=== PATIENT | male | born 1995 | race African-American/Black ===

== ENCOUNTER 2016-11-23 16:31 | Inpatient (IN) | payer SELFPAY ==
[2016-11-23] MEDS ORDERED: ONDANSETRON HCL INJ/PF 4 MG/2 ML SDV IV ONE (17:14)
[2016-11-23] MEDS ORDERED: NORMAL SALINE 1000 ML 1,000 ML IV ONE ×3 (17:14→23:31)
--- NOTE | 2016-11-23 17:17 | ER Document Report ---
ED Flu Like - General Chief Complaint: Flu Symptoms Stated Complaint: FLU LIKE SYMTPOMS Time seen by provider: 17:14 Mode of Arrival: Ambulatory Information source: Patient Notes: 21-year-old female presents to ED for bodyaches nausea or vomiting headache hot and cold sweats and states she's having muscle spasms and unable to eat for one to 2 weeks TRAVEL OUTSIDE OF THE [place] IN LAST 30 DAYS: No - HPI Onset: Other - 1-2 weeks Timing/Duration: Intermittent, Worse Quality of pain: Achy Pain Level: 4 - Body aches and muscle spasms CO exposure: No Associated symptoms: Body/muscle aches, Chills, Nausea, Vomiting Similar symptoms previously: No Recently seen / treated by doctor: No - Related Data Allergies/Adverse Reactions: No Known Allergies Allergy (Verified 11/23/16 16:42) Past Medical History - General Information source: Patient - Social History Smoking Status: Current Every Day Smoker Cigarette use (# per day): Yes - 3 cigarettes a day Chew tobacco use (# tins/day): No Smoking Education Provided: Yes Frequency of alcohol use: Social Drug Abuse: None Lives with: Family Family History: Arthritis, CVA, Hypertension Patient has suicidal ideation: No Patient has homicidal ideation: No - Past Medical History Cardiac Medical History: Reports: Hx Hypertension Pulmonary Medical History: Reports: None EENT Medical History: Reports: None Neurological Medical History: Reports: None Endocrine Medical History: Reports: None Renal/ Medical History: Reports: None Malignancy Medical History: Reports None GI Medical History: Reports: None Musculoskeltal Medical History: Reports None Skin Medical History: Reports None Psychiatric Medical History: Reports: None Traumatic Medical History: Reports: None Infectious Medical History: Reports: None Past Surgical History: Reports: Hx Tonsillectomy Review of Systems - Review of Systems Constitutional: Chills, Fever, Recent illness EENT: No symptoms reported Cardiovascular: No symptoms reported Respiratory: No symptoms reported Gastrointestinal: Diarrhea, Vomiting Genitourinary: No symptoms reported Male Genitourinary: No symptoms reported Musculoskeletal: No symptoms reported Skin: No symptoms reported Hematologic/Lymphatic: No symptoms reported Neurological/Psychological: No symptoms reported Physical Exam - Vital signs Vitals: Temp Pulse Resp BP Pulse Ox 97.8 F 119 H 18 157/94 H 96 11/23/16 16:44 11/23/16 16:44 11/23/16 16:44 11/23/16 16:44 11/23/16 16:44 Interpretation: Normal - General General appearance: Appears well, Alert - HEENT Head: Normocephalic, Atraumatic Eyes: Normal Pupils: PERRL - Respiratory Respiratory status: No respiratory distress Chest status: Nontender Breath sounds: Normal Chest palpation: Normal - Cardiovascular Rhythm: Regular Heart sounds: Normal auscultation Murmur: No - Abdominal Inspection: Normal Distension: No distension Bowel sounds: Normal Tenderness: Nontender Organomegaly: No organomegaly - Back Back: Normal, Nontender - Extremities General upper extremity: Normal inspection, Nontender, Normal color, Normal ROM , Normal temperature General lower extremity: Normal inspection, Nontender, Normal color, Normal ROM , Normal temperature, Normal weight bearing. No: Haylie's sign - Neurological Neuro grossly intact: Yes Cognition: Normal Orientation: AAOx4 [place] Coma Scale Eye Opening: Spontaneous Patricia Coma Scale Verbal: Oriented [place] Coma Scale Motor: Obeys Commands [place] Coma Scale Total: 15 Speech: Normal Motor strength normal: LUE, RUE, LLE, RLE Sensory: Normal - Psychological Associated symptoms: Normal affect, Normal mood - Skin Skin Temperature: Warm Skin Moisture: Dry Skin Color: Normal Course - Re-evaluation Re-evalutation: 11/23/16 18:[address] buchanan. We'll start bolusing saline 4 L, insulin drip, send specimen for venous blood gas, and Accu-Cheks every hour. Patient does not have a primary doctor will admit to hospitalist. Called Dr. Freitas to admit patient and she said that would need to wait until 7:30 and [facility]. 11/23/16 19:[address] Forrester who accepted the patient for admission. We will admit for DKA to IMCU. Patient put in for admission. Patient has had fluids started has had his insulin drip started and is resting quietly at this time. - Vital Signs Vital signs: Temp Pulse Resp BP Pulse Ox 97.8 F 119 H 18 157/94 H 100 11/23/16 16:44 11/23/16 16:44 11/23/16 16:44 11/23/16 16:44 11/23/16 19:38 - Laboratory Result Diagrams: 11/23/16 17:31 11/23/16 17:31 Laboratory results interpreted by me: 11/23/16 11/23/16 17:31 17:31 Sodium 131.5 L Chloride 94 L Carbon Dioxide 9 L* Anion Gap 29 H Glucose 657 H* Alkaline Phosphatase 159 H Urine Glucose (UA) >=500 H Urine Ketones 80 H Urine Blood SMALL H Discharge - Discharge Clinical Impression: DKA (diabetic ketoacidoses) Qualifiers: Diabetes mellitus type: other specified (including CROW) Diabetes mellitus complication detail: without coma Qualified Code(s): E13.10 - Other specified diabetes mellitus with ketoacidosis without coma Disposition: ADMITTED INPATIENT Admitting Provider: [facility] Unit Admitted: [facility]
[2016-11-23 17:48] LABS: ABSOLUTE LYMPHOCYTES (AUTO) 1.7 10^3/uL (0.5-4.7); ABSOLUTE MONOCYTES (AUTO) 0.4 10^3/uL (0.1-1.4); ABSOLUTE NEUT (AUTO) 3.3 10^3/uL (1.7-8.2); BASOPHILS % (AUTO) 0.5 % (0-2); EOSINOPHILS % (AUTO) 0.7 % (0-6); HEMATOCRIT 47.1 % (37.9-51.0); HEMOGLOBIN 16.1 g/dL (13.5-17.0); HGB HCT DIFFERENCE 1.2; MEAN CORPUSCULAR HEMOGLOBIN 30.8 pg (27.0-33.4); MEAN CORPUSCULAR HGB CONC 34.2 g/dL (32.0-36.0); MEAN CORPUSCULAR VOLUME 90 fl (80-97); MONOCYTES % (AUTO) 7.1 % (3-13); RED BLOOD COUNT 5.23 10^6/uL (4.35-5.55); SEGMENTED NEUTROPHILS % (AUTO) 60.7 % (42-78); WHITE BLOOD COUNT 5.4 10^3/uL (4.0-10.5)
[2016-11-23 18:05] LABS: ALANINE AMINOTRANSFERASE 49 U/L (21-72); ALBUMIN 4.5 g/dL (3.5-5.0); ALKALINE PHOSPHATASE 159 U/L (38-126); ASPARTATE AMINO TRANSFERASE 19 U/L (17-59); BILIRUBIN,DIRECT 0.4 mg/dL (0.0-0.4); BILIRUBIN,TOTAL 0.7 mg/dL (0.2-1.3); BLOOD UREA NITROGEN 11 mg/dL (7-20); CALCIUM 9.2 mg/dL (8.4-10.2); CREATININE RESULT 1.17 mg/dL (0.52-1.25); TOTAL PROTEIN 7.9 g/dL (6.3-8.2)
[2016-11-23 18:21] LABS: CHLORIDE 94 mmol/L (98-107); SODIUM 131.5 mmol/L (137-145)
[2016-11-23 18:23] LABS: APPEARANCE,URINE SLIGHTLY-CLOUDY; BILIRUBIN,URINE NEGATIVE (NEGATIVE); GLUCOSE, URINE >=500 mg/dL (NEGATIVE); KETONES,URINE 80 mg/dL (NEGATIVE); LEUKOCYTE ESTERASE,URINE NEGATIVE (NEGATIVE); NITRITE,URINE NEGATIVE (NEGATIVE); PROTEIN,URINE NEGATIVE (NEGATIVE); URINE SPECIFIC GRAVITY 1.031; UROBILINOGEN,URINE NEGATIVE mg/dL (<2.0)
[2016-11-23 18:25] LABS: ANION GAP 29 (5-19)
[2016-11-23 18:28] LABS: CARBON DIOXIDE 9 mmol/L (22-30); GLUCOSE 657 mg/dL (75-110)
[2016-11-23] MEDS ORDERED: NORMAL SALINE 100 ML with INSULIN REGULAR, HUMAN 100 UNIT IV PRN ×2 (18:32)
[2016-11-23 18:33] LABS: URINE BARBITURATES SCREEN NEGATIVE; URINE METHADONE SCREEN NEGATIVE; URINE OPIATES LOW NEGATIVE; URINE PHENCYCLIDINE SCREEN NEGATIVE
[2016-11-23] MEDS: NORMAL SALINE 1000 ML 1,000 ML IV PRN ×2 (18:56→20:11)
[2016-11-23] MEDS ORDERED: INSULIN REG, HUMAN 100 UNIT/ML 3 ML VIAL INJ ONE (19:15)
[2016-11-23] MEDS ORDERED: INSULIN REG, HUMAN 100 UNIT/ML 3 ML VIAL (PYX) ONE (19:19)
[2016-11-23] MEDS ORDERED: INSULIN REG, HUMAN 100 UNIT/ML 3 ML VIAL (PYX) INJ ONE (19:30)
[2016-11-23] MEDS ORDERED: DEXTROSE 40% GEL 15 GM TUBE PO PRN ×2 (19:49)
[2016-11-23] MEDS ORDERED: IPRATROPIUM/ALBUTEROL 0.5-2.5 MG/3 ML AMPUL NEB PRN (19:49)
[2016-11-23] MEDS ORDERED: DEXTROSE 50%-WATER 25 GM/50 ML DISP.SYRIN IV PRN ×2 (19:49)
[2016-11-23] MEDS ORDERED: GLUCAGON,HUMAN RECOMB 1 MG INJ IM PRN (19:49)
[2016-11-23] MEDS ORDERED: ONDANSETRON HCL INJ/PF 4 MG/2 ML SDV IV PRN (19:49)
[2016-11-23] MEDS ORDERED: POTASSI CL 20 MEQ/1/2NS 1L 1,000 ML IV SCH (20:00)
[2016-11-23] MEDS ORDERED: HYDRALAZINE HCL INJ/PF 20 MG/1 ML SDV IV PRN (20:05)
[2016-11-23] MEDS ORDERED: ENALAPRILAT DIHYDRATE INJ/PF 1.25 MG/1 ML SDV IV ONE (20:06)
[2016-11-23 21:10] LABS: VENOUS BLOOD HCO3 11.4 mmol/L (20-32); VENOUS BLOOD PCO2 32.5 mmHg (35-63)
[2016-11-23 21:12] LABS: VENOUS BLOOD PH 7.16 (7.30-7.42)
[2016-11-23 21:21] LABS: BLOOD UREA NITROGEN 9 mg/dL (7-20); CALCIUM 8.2 mg/dL (8.4-10.2); CREATININE RESULT 0.92 mg/dL (0.52-1.25); GLUCOSE 284 mg/dL (75-110)
[2016-11-23 21:35] LABS: CHLORIDE 107 mmol/L (98-107); POTASSIUM 4.1 mmol/L (3.6-5.0); SODIUM 141.4 mmol/L (137-145)
[2016-11-23 21:38] LABS: ANION GAP 25 (5-19)
[2016-11-23 21:40] LABS: CARBON DIOXIDE 9 mmol/L (22-30)
[2016-11-23] MEDS: HEPARIN SOD (PORCINE) 5,000 UNIT/ML 1 ML SYRINGE SUBCUT SCH (22:08)
--- NOTE | 2016-11-23 22:19 | EKG REPORT ---
SEVERITY:- ABNORMAL ECG - SINUS RHYTHM PROLONGED QT INTERVAL : Confirmed by: Anais Montenegro 23-Nov-2016 22:18:38
[2016-11-23] MEDS ORDERED: POTASSI CL 20 MEQ/D5-1/2NS 1L 1,000 ML IV ONE (23:42)
--- NOTE | 2016-11-24 00:37 | PDOC H&P ---
History of Present Illness Admission Date/PCP: 11/23/16 19:49 Patient complains of: Abdominal pain and nausea History of Present Illness: MICHELLE OLEARY JR is a 21 year old male with a past medical history of hypertension, dyslipidemia, subclinical depression, tobacco occasional alcohol and morbid obesity. Who had been in his usual state of health until approximately 2 weeks ago noting polydipsia polyuria and development of nausea with vomiting prompting to seek evaluation emergency room where his found to have diabetic ketoacidosis with increasing increased anion gap and bicarbonate of 9. He denies any recent illness or change in medication. He started on IV insulin IV fluid collection repletion referred the hospitalist for admission. Past Medical History Cardiac Medical History: Reports: Hypertension Pulmonary Medical History: Reports: None EENT Medical History: Reports: None Neurological Medical History: Reports: None Endocrine Medical History: Reports: None Renal/ Medical History: Reports: None Malignancy Medical History: Reports: None GI Medical History: Reports: None Musculoskeltal Medical History: Reports: None Skin Medical History: Reports: None Psychiatric Medical History: Reports: None Traumatic Medical History: Reports: None Infectious Medical History: Reports: None Past Surgical History Past Surgical History: Reports: Tonsillectomy Social History Lives with: Family Smoking Status: Current Every Day Smoker Cigarettes Packs Per Day: 0.5 Frequency of Alcohol Use: Social - Advance Directive Resuscitation Status: Full Code Family History Family History: Arthritis, CVA, DM, Hypertension Parental Family History Reviewed: Yes Children Family History Reviewed: Yes Sibling(s) Family History Reviewed.: Yes Medication/Allergy Home Medications: No Home Medications 11/23/16 Allergies/Adverse Reactions: No Known Allergies Allergy (Verified 11/23/16 16:42) Review of Systems Constitutional: PRESENT: as per HPI, anorexia, fatigue. ABSENT: chills, fever(s ), headache(s), night sweats Eyes: ABSENT: visual disturbances Ears: ABSENT: hearing changes Cardiovascular: ABSENT: chest pain, dyspnea on exertion, edema, orthropnea, palpitations Respiratory: ABSENT: cough, hemoptysis Gastrointestinal: PRESENT: abdominal pain, bloating, nausea, vomiting. ABSENT: dysphagia, heartburn, hematemesis, hematochezia Genitourinary: ABSENT: dysuria, hematuria Musculoskeletal: ABSENT: joint swelling Integumentary: ABSENT: rash, wounds Neurological: ABSENT: abnormal gait, abnormal speech, confusion, dizziness, focal weakness, syncope Psychiatric: ABSENT: anxiety, depression, homidical ideation, suicidal ideation Endocrine: PRESENT: polydipsia, polyphagia, polyuria. ABSENT: cold intolerance , heat intolerance Hematologic/Lymphatic: ABSENT: easy bleeding, easy bruising Physical Exam Vital Signs: Temp Pulse Resp BP Pulse Ox 97.8 F 119 H 12 127/81 H 99 11/23/16 16:44 11/23/16 16:44 11/23/16 21:40 11/23/16 21:40 11/23/16 21:40 General appearance: PRESENT: disheveled, obese, severe distress Head exam: PRESENT: atraumatic, normocephalic Eye exam: PRESENT: conjunctiva pink, EOMI, PERRLA. ABSENT: scleral icterus Ear exam: PRESENT: normal external ear exam Mouth exam: PRESENT: dry mucosa. ABSENT: laceration Neck exam: ABSENT: carotid bruit, JVD, lymphadenopathy, thyromegaly Respiratory exam: PRESENT: clear to auscultation pj. ABSENT: rales, rhonchi, wheezes Cardiovascular exam: PRESENT: bradycardia Pulses: PRESENT: normal dorsalis pedis pul Vascular exam: PRESENT: normal capillary refill GI/Abdominal exam: PRESENT: normal bowel sounds, soft. ABSENT: distended, guarding, mass, organolmegaly, rebound, tenderness Rectal exam: PRESENT: deferred Extremities exam: PRESENT: full ROM. ABSENT: calf tenderness, clubbing, pedal edema Neurological exam: PRESENT: alert, awake, oriented to person, oriented to place , oriented to time, oriented to situation, CN II-XII grossly intact. ABSENT: motor sensory deficit Psychiatric exam: PRESENT: flat affect Skin exam: PRESENT: dry, intact, warm. ABSENT: cyanosis, rash Results Laboratory Results: 11/23/16 21:02 11/23/16 11/23/16 21:02 21:02 VBG pH 7.16 L* VBG pCO2 32.5 L VBG HCO3 11.4 L VBG Base Excess -16.0 Sodium 141.4 Potassium 4.1 Chloride 107 Carbon Dioxide 9 L* Anion Gap 25 H BUN 9 Creatinine 0.92 Est GFR ( Amer) > 60 Est GFR (Non-Af Amer) > 60 Glucose 284 H Calcium 8.2 L Assessment & Plan - Diagnosis (1) DKA (diabetic ketoacidoses) Qualifiers: Diabetes mellitus type: other specified (including CROW) Diabetes mellitus complication detail: without coma Qualified Code(s): E13.10 - Other specified diabetes mellitus with ketoacidosis without coma Is this a current diagnosis for this admission?: YesPlan: IV insulin, IV fluid, electrolyte repletion serial chemistries and education (2) Hypertension Is this a current diagnosis for this admission?: YesPlan: NANDO inhibitor initiated (3) Dyslipidemia Is this a current diagnosis for this admission?: YesPlan: Lipitor (4) Depression Is this a current diagnosis for this admission?: YesPlan: Trial Wellbutrin consider referral to outpatient mental health (5) Morbid obesity Is this a current diagnosis for this admission?: YesPlan: Evaluate TSH and dietitian consult
[2016-11-24 01:43] LABS: ANION GAP 19 (5-19); BLOOD UREA NITROGEN 10 mg/dL (7-20); CALCIUM 8.3 mg/dL (8.4-10.2); CARBON DIOXIDE 11 mmol/L (22-30); CHLORIDE 113 mmol/L (98-107); CREATININE RESULT 0.89 mg/dL (0.52-1.25); GLUCOSE 202 mg/dL (75-110); POTASSIUM 3.8 mmol/L (3.6-5.0); SODIUM 142.7 mmol/L (137-145)
[2016-11-24] MEDS ORDERED: INSULIN, REGULAR 100 UNIT/100 ML NORMAL SALINE IV PRN ×2 (03:20)
[2016-11-24] MEDS ORDERED: POTASSI CL 20 MEQ/D5-1/2NS 1L 1,000 ML IV ONE (04:25)
[2016-11-24] MEDS: POTASSI CL 20 MEQ/D5-1/2NS 1L 1000 ML IV PRN ×3 (04:41→11:24)
[2016-11-24 05:22] LABS: ABSOLUTE EOSINOPHILS # (AUTO) 0.1 10^3/uL (0.0-0.6); ABSOLUTE LYMPHOCYTES (AUTO) 1.6 10^3/uL (0.5-4.7); ABSOLUTE MONOCYTES (AUTO) 0.4 10^3/uL (0.1-1.4); ABSOLUTE NEUT (AUTO) 3.3 10^3/uL (1.7-8.2); BASOPHILS % (AUTO) 0.5 % (0-2); EOSINOPHILS % (AUTO) 1.4 % (0-6); HEMATOCRIT 38.4 % (37.9-51.0); HGB HCT DIFFERENCE 0.6; LYMPHOCYTES % (AUTO) 29.8 % (13-45); MEAN CORPUSCULAR HEMOGLOBIN 29.9 pg (27.0-33.4); MEAN CORPUSCULAR HGB CONC 33.9 g/dL (32.0-36.0); MEAN CORPUSCULAR VOLUME 88 fl (80-97); RED BLOOD COUNT 4.36 10^6/uL (4.35-5.55); RED CELL DISTRIBUTION WIDTH 13.1 % (11.5-14.0); SEGMENTED NEUTROPHILS % (AUTO) 61.3 % (42-78); WHITE BLOOD COUNT 5.4 10^3/uL (4.0-10.5)
[2016-11-24 05:41] LABS: ANION GAP 16 (5-19); BLOOD UREA NITROGEN 8 mg/dL (7-20); CALCIUM 7.8 mg/dL (8.4-10.2); CARBON DIOXIDE 11 mmol/L (22-30); CHLORIDE 113 mmol/L (98-107); CREATININE RESULT 0.76 mg/dL (0.52-1.25); GLUCOSE 167 mg/dL (75-110); POTASSIUM 3.9 mmol/L (3.6-5.0); SODIUM 140.4 mmol/L (137-145)
[2016-11-24] MEDS: HEPARIN SOD (PORCINE) 5,000 UNIT/ML 1 ML SYRINGE SUBCUT SCH ×3 (06:06→21:15)
[2016-11-24] MEDS ORDERED: INSULIN REG, HUMAN 100 UNIT/ML 3 ML VIAL (PYX) ONE (06:15)
[2016-11-24 09:26] LABS: HEMATOCRIT 37.9 % (37.9-51.0); HEMOGLOBIN 12.8 g/dL (13.5-17.0); HGB HCT DIFFERENCE 0.5; MEAN CORPUSCULAR HEMOGLOBIN 29.6 pg (27.0-33.4); MEAN CORPUSCULAR HGB CONC 33.7 g/dL (32.0-36.0); MEAN CORPUSCULAR VOLUME 88 fl (80-97); RED BLOOD COUNT 4.32 10^6/uL (4.35-5.55); RED CELL DISTRIBUTION WIDTH 13.1 % (11.5-14.0); WHITE BLOOD COUNT 4.3 10^3/uL (4.0-10.5)
[2016-11-24 09:57] LABS: ANION GAP 11 (5-19); BLOOD UREA NITROGEN 6 mg/dL (7-20); CALCIUM 8.3 mg/dL (8.4-10.2); CARBON DIOXIDE 16 mmol/L (22-30); CHLORIDE 112 mmol/L (98-107); CREATININE RESULT 0.75 mg/dL (0.52-1.25); GLUCOSE 166 mg/dL (75-110); POTASSIUM 3.8 mmol/L (3.6-5.0); SODIUM 139.1 mmol/L (137-145)
[2016-11-24] MEDS: DOCUSATE SODIUM 100 MG CAPSULE PO SCH ×2 (10:57→16:49)
[2016-11-24] MEDS: BUPROPION HCL 100 MG TABLET PO SCH (10:58)
[2016-11-24] MEDS: ACETAMINOPHEN 325 MG TABLET PO PRN ×2 (10:59→17:41)
[2016-11-24] MEDS ORDERED: GLUCAGON,HUMAN RECOMB 1 MG INJ IM PRN (13:29)
[2016-11-24] MEDS ORDERED: DEXTROSE 40% GEL 15 GM TUBE PO PRN ×2 (13:29)
[2016-11-24] MEDS ORDERED: DEXTROSE 50%-WATER 25 GM/50 ML DISP.SYRIN IV PRN ×2 (13:29)
--- NOTE | 2016-11-24 14:36 | PDOC PROGRESS REPORT ---
Subjective Progress Note for:: 11/24/16 Subjective:: The patient is a 21-year-old obese -Luxembourger male. His past medical history significant for hypertension, dyslipidemia, depression and tobacco abuse. The patient is morbidly obese. He drinks alcohol occasionally. The patient presented to the emergency room with a two-week history of polydipsia and polyuria. He subsequently developed nausea and vomiting. He was unable to keep down any by mouth intake and he presented to the emergency room. Was found to have evidence of diabetic ketoacidosis with increased anion gap and a bicarbonate of 9. He was admitted to the hospital and started on insulin drip protocol. Today when I saw the patient he is resting in his bed. He has a very flat affect and he appears to be quite depressed. He really does not offer much in the way of history and says that he does not have a doctor or any medical insurance at this point. He denies fever chills. Said no chest pain, shortness of breath or heart palpitations. He states his nausea and vomiting have resolved and he is wondering when he can start a diet. He states he has some mild abdominal pain that he attributes to the vomiting. He is having normal bowel movements. He continues to have some urinary frequency but denies dysuria or hematuria. Physical Exam Vital Signs: Temp Pulse Resp BP Pulse Ox 98.5 F 82 15 134/74 H 100 11/24/16 11:36 11/24/16 11:51 11/24/16 11:51 11/24/16 11:36 11/24/16 11:36 Intake & Output 11/23/16 11/24/16 11/25/16 06:59 06:59 06:59 Intake Total 1293 0 Output Total 0 Balance 1293 0 Weight 120.4 kg General appearance: PRESENT: no acute distress, morbidly obese, well-developed, well-nourished Head exam: PRESENT: atraumatic, normocephalic Eye exam: PRESENT: conjunctiva pink, EOMI, PERRLA. ABSENT: scleral icterus Mouth exam: PRESENT: moist, tongue midline Respiratory exam: PRESENT: clear to auscultation pj. ABSENT: rales, rhonchi, wheezes Cardiovascular exam: PRESENT: RRR. ABSENT: diastolic murmur, rubs, systolic murmur GI/Abdominal exam: PRESENT: normal bowel sounds, soft, tenderness - He has mild tenderness to palpation across his upper abdomen. ABSENT: distended, guarding, mass, organolmegaly, rebound Rectal exam: PRESENT: deferred Musculoskeletal exam: PRESENT: ambulatory Neurological exam: PRESENT: alert, altered, awake, oriented to person, oriented to time, oriented to situation Psychiatric exam: PRESENT: depressed, flat affect Skin exam: PRESENT: other - The patient has a small area on the inner left thigh. It is a small wound. It does not appear to be acutely infected. There is some yellow drainage from the wound. Results Laboratory Results: 11/24/16 09:07 11/24/16 09:07 11/23/16 11/23/16 11/24/16 21:02 21:02 01:16 WBC RBC Hgb Hct MCV MCH MCHC RDW Plt Count Seg Neutrophils % Lymphocytes % Monocytes % Eosinophils % Basophils % Absolute Neutrophils Absolute Lymphocytes Absolute Monocytes Absolute Eosinophils Absolute Basophils VBG pH 7.16 L* VBG pCO2 32.5 L VBG HCO3 11.4 L VBG Base Excess -16.0 Sodium 141.4 142.7 Potassium 4.1 3.8 Chloride 107 113 H Carbon Dioxide 9 L* 11 L Anion Gap 25 H 19 BUN 9 10 Creatinine 0.92 0.89 Est GFR ( Amer) > 60 > 60 Est GFR (Non-Af Amer) > 60 > 60 Glucose 284 H 202 H Calcium 8.2 L 8.3 L 11/24/16 11/24/16 11/24/16 04:56 04:56 09:07 WBC 5.4 RBC 4.36 Hgb 13.0 L D Hct 38.4 MCV 88 MCH 29.9 MCHC 33.9 RDW 13.1 Plt Count 216 Seg Neutrophils % 61.3 Lymphocytes % 29.8 Monocytes % 7.0 Eosinophils % 1.4 Basophils % 0.5 Absolute Neutrophils 3.3 Absolute Lymphocytes 1.6 Absolute Monocytes 0.4 Absolute Eosinophils 0.1 Absolute Basophils 0.0 VBG pH VBG pCO2 VBG HCO3 VBG Base Excess Sodium 140.4 139.1 Potassium 3.9 3.8 Chloride 113 H 112 H Carbon Dioxide 11 L 16 L Anion Gap 16 11 BUN 8 6 L Creatinine 0.76 0.75 Est GFR ( Amer) > 60 > 60 Est GFR (Non-Af Amer) > 60 > 60 Glucose 167 H 166 H Calcium 7.8 L 8.3 L 11/24/16 09:07 WBC 4.3 RBC 4.32 L Hgb 12.8 L Hct 37.9 MCV 88 MCH 29.6 MCHC 33.7 RDW 13.1 Plt Count 211 Seg Neutrophils % Lymphocytes % Monocytes % Eosinophils % Basophils % Absolute Neutrophils Absolute Lymphocytes Absolute Monocytes Absolute Eosinophils Absolute Basophils VBG pH VBG pCO2 VBG HCO3 VBG Base Excess Sodium Potassium Chloride Carbon Dioxide Anion Gap BUN Creatinine Est GFR ( Amer) Est GFR (Non-Af Amer) Glucose Calcium Assessment & Plan - Diagnosis (1) DKA (diabetic ketoacidoses) Qualifiers: Diabetes mellitus type: other specified (including CROW) Diabetes mellitus complication detail: without coma Qualified Code(s): E13.10 - Other specified diabetes mellitus with ketoacidosis without coma Is this a current diagnosis for this admission?: YesPlan: The patient's anion gap is normalized and his CO2 level is improving. I did discuss with Dr. Miller but stayed and a decision has been made to place the patient on 50 units of Lantus. He will be covered with sliding scale insulin. He will be started on a diabetic diet. I'm going to consult the rn diabetes educator for further recommendations. He may need to be transitioned over to 70 /30 prior to discharge. I will instruct the nursing staff to instruct the patient how to give himself insulin injections and check his blood sugar. (2) Depression Is this a current diagnosis for this admission?: YesPlan: The patient appears to be acutely depressed. The admitting physician started the patient on Wellbutrin. We will continue this for now. (3) Dyslipidemia Is this a current diagnosis for this admission?: YesPlan: He has been started on atorvastatin (4) Hypertension Is this a current diagnosis for this admission?: YesPlan: I'm going to start the patient on low-dose lisinopril. We can titrate this upwards. This would also help with kidney protection as well. (5) Morbid obesity Is this a current diagnosis for this admission?: YesPlan: He will be seen by the diabetes territory manager. (6) Tobacco abuse Plan: The patient has been started on the neck and arm patch. He also has been started on Wellbutrin for his depression which hopefully will help as well. - Time Time Spent with patient: 25-34 minutes Smoking Cessation Education: 3 to 10 minutes Medications reviewed and adjusted accordingly: Yes Anticipated discharge: Home
[2016-11-24] MEDS ORDERED: INSULIN GLARGINE,HUM.REC.ANLOG 300 UNIT/3 ML INSULN.PEN SUBCUT ONE (15:00)
[2016-11-24] MEDS ORDERED: NICOTINE 21 MG/24 HR PATCH.TD24 TD ONE (15:00)
[2016-11-24 15:55] LABS: ANION GAP 10 (5-19); BLOOD UREA NITROGEN 5 mg/dL (7-20); CALCIUM 8.6 mg/dL (8.4-10.2); CARBON DIOXIDE 18 mmol/L (22-30); CHLORIDE 108 mmol/L (98-107); CREATININE RESULT 0.77 mg/dL (0.52-1.25); GLUCOSE 211 mg/dL (75-110); POTASSIUM 3.6 mmol/L (3.6-5.0); SODIUM 136.4 mmol/L (137-145)
[2016-11-24] MEDS ORDERED: NORMAL SALINE 1000 ML 1,000 ML IV PRN (15:56)
[2016-11-24] MEDS: INSULIN REG, HUMAN 100 UNIT/ML 3 ML VIAL (PYX) SUBCUT PRN ×2 (16:49→22:50)
[2016-11-24 20:05] LABS: ANION GAP 14 (5-19); BLOOD UREA NITROGEN 6 mg/dL (7-20); CALCIUM 8.8 mg/dL (8.4-10.2); CARBON DIOXIDE 16 mmol/L (22-30); CHLORIDE 106 mmol/L (98-107); GLUCOSE 269 mg/dL (75-110); POTASSIUM 4.2 mmol/L (3.6-5.0); SODIUM 135.9 mmol/L (137-145)
[2016-11-24] MEDS: ATORVASTATIN CALCIUM 40 MG TABLET PO SCH (21:15)
[2016-11-24 23:28] LABS: ANION GAP 16 (5-19); BLOOD UREA NITROGEN 5 mg/dL (7-20); CALCIUM 8.8 mg/dL (8.4-10.2); CARBON DIOXIDE 15 mmol/L (22-30); CHLORIDE 106 mmol/L (98-107); GLUCOSE 259 mg/dL (75-110); POTASSIUM 3.7 mmol/L (3.6-5.0); SODIUM 136.9 mmol/L (137-145)
[2016-11-25 03:42] LABS: ANION GAP 12 (5-19); BLOOD UREA NITROGEN 5 mg/dL (7-20); CALCIUM 8.6 mg/dL (8.4-10.2); CARBON DIOXIDE 18 mmol/L (22-30); CHLORIDE 109 mmol/L (98-107); CREATININE RESULT 0.69 mg/dL (0.52-1.25); GLUCOSE 190 mg/dL (75-110); POTASSIUM 3.4 mmol/L (3.6-5.0); SODIUM 138.8 mmol/L (137-145)
[2016-11-25] MEDS: HEPARIN SOD (PORCINE) 5,000 UNIT/ML 1 ML SYRINGE SUBCUT SCH ×3 (05:52→22:55)
[2016-11-25 07:24] LABS: ABSOLUTE EOSINOPHILS # (AUTO) 0.2 10^3/uL (0.0-0.6); ABSOLUTE LYMPHOCYTES (AUTO) 1.4 10^3/uL (0.5-4.7); ABSOLUTE MONOCYTES (AUTO) 0.2 10^3/uL (0.1-1.4); ABSOLUTE NEUT (AUTO) 1.2 10^3/uL (1.7-8.2); BASOPHILS % (AUTO) 0.7 % (0-2); EOSINOPHILS % (AUTO) 6.1 % (0-6); HEMATOCRIT 37.9 % (37.9-51.0); HEMOGLOBIN 12.9 g/dL (13.5-17.0); HGB HCT DIFFERENCE 0.8; LYMPHOCYTES % (AUTO) 46.2 % (13-45); MEAN CORPUSCULAR HEMOGLOBIN 29.9 pg (27.0-33.4); MEAN CORPUSCULAR HGB CONC 34.2 g/dL (32.0-36.0); MEAN CORPUSCULAR VOLUME 87 fl (80-97); MONOCYTES % (AUTO) 7.6 % (3-13); RED BLOOD COUNT 4.33 10^6/uL (4.35-5.55); RED CELL DISTRIBUTION WIDTH 13.2 % (11.5-14.0); SEGMENTED NEUTROPHILS % (AUTO) 39.4 % (42-78)
[2016-11-25] MEDS ORDERED: ACETAMINOPHEN 325 MG TABLET PO PRN (07:28)
[2016-11-25] MEDS ORDERED: POTASSIUM CHLORIDE 10 MEQ TABLET.SA PO ONE (07:30)
[2016-11-25 07:44] LABS: ANION GAP 12 (5-19); BLOOD UREA NITROGEN 4 mg/dL (7-20); CALCIUM 8.6 mg/dL (8.4-10.2); CARBON DIOXIDE 19 mmol/L (22-30); CHLORIDE 108 mmol/L (98-107); CREATININE RESULT 0.68 mg/dL (0.52-1.25); GLUCOSE 161 mg/dL (75-110); MAGNESIUM 1.9 mg/dL (1.6-2.3); POTASSIUM 3.3 mmol/L (3.6-5.0); SODIUM 138.5 mmol/L (137-145)
[2016-11-25] MEDS: NICOTINE 21 MG/24 HR PATCH.TD24 TD SCH (09:03)
[2016-11-25] MEDS: LISINOPRIL 10 MG TABLET PO SCH (09:04)
[2016-11-25] MEDS: DOCUSATE SODIUM 100 MG CAPSULE PO SCH ×2 (09:04→17:41)
[2016-11-25] MEDS: BUPROPION HCL 100 MG TABLET PO SCH (09:04)
[2016-11-25] MEDS: INSULIN GLARGINE,HUM.REC.ANLOG 300 UNIT/3 ML INSULN.PEN SUBCUT SCH (09:06)
--- NOTE | 2016-11-25 09:37 | PDOC PROGRESS REPORT ---
Subjective Progress Note for:: 11/25/16 Subjective:: The patient is resting in his bed with his at the bedside. He is a little more interactive today but still appears to be quite depressed. He states that he is feeling better than he did yesterday. He is quite overwhelmed with this entire diagnosis and is unsure whether he can give himself insulin injections. The patient's also had many questions regarding a diabetic diet. I spent quite some time in the room discussing diabetes education with the patient and his . They are looking forward to seeing the diabetes nurse educator today. Overall the patient denies fever or chills. He's had no chest pain, shortness of breath or heart palpitations. No nausea, vomiting or diarrhea. He is tolerating a diabetic diet. No dysuria, frequency or hematuria. Physical Exam Vital Signs: Temp Pulse Resp BP Pulse Ox 97.6 F 86 19 124/61 100 11/25/16 07:31 11/25/16 07:31 11/25/16 07:31 11/25/16 07:31 11/25/16 07:31 Intake & Output 11/24/16 11/25/16 11/26/16 06:59 06:59 06:59 Intake Total 1293 3852 Output Total 0 221 Balance 1293 3631 Weight 120.4 kg 120.4 kg General appearance: PRESENT: no acute distress, obese, well-developed, well- nourished Head exam: PRESENT: atraumatic, normocephalic Eye exam: PRESENT: scleral icterus Mouth exam: PRESENT: dry mucosa, laceration, moist, neck supple, tongue midline , other Respiratory exam: PRESENT: clear to auscultation pj. ABSENT: rales, rhonchi, wheezes Cardiovascular exam: PRESENT: RRR. ABSENT: diastolic murmur, rubs, systolic murmur GI/Abdominal exam: PRESENT: normal bowel sounds, soft, tenderness - He is mildly tender across his upper abdomen. ABSENT: distended, guarding, mass, organolmegaly, rebound Neurological exam: PRESENT: alert, awake, oriented to person, oriented to place , oriented to time, oriented to situation, CN II-XII grossly intact. ABSENT: motor sensory deficit Psychiatric exam: PRESENT: depressed, flat affect Skin exam: PRESENT: dry, intact, warm. ABSENT: cyanosis, rash Results Laboratory Results: 11/25/16 07:10 11/25/16 07:10 11/24/16 11/24/16 11/24/16 09:07 09:07 15:26 WBC 4.3 RBC 4.32 L Hgb 12.8 L Hct 37.9 MCV 88 MCH 29.6 MCHC 33.7 RDW 13.1 Plt Count 211 Seg Neutrophils % Lymphocytes % Monocytes % Eosinophils % Basophils % Absolute Neutrophils Absolute Lymphocytes Absolute Monocytes Absolute Eosinophils Absolute Basophils Sodium 139.1 136.4 L Potassium 3.8 3.6 Chloride 112 H 108 H Carbon Dioxide 16 L 18 L Anion Gap 11 10 BUN 6 L 5 L Creatinine 0.75 0.77 Est GFR ( Amer) > 60 > 60 Est GFR (Non-Af Amer) > 60 > 60 Glucose 166 H 211 H Calcium 8.3 L 8.6 Magnesium 11/24/16 11/24/16 11/25/16 19:32 23:00 03:03 WBC RBC Hgb Hct MCV MCH MCHC RDW Plt Count Seg Neutrophils % Lymphocytes % Monocytes % Eosinophils % Basophils % Absolute Neutrophils Absolute Lymphocytes Absolute Monocytes Absolute Eosinophils Absolute Basophils Sodium 135.9 L 136.9 L 138.8 Potassium 4.2 3.7 3.4 L Chloride 106 106 109 H Carbon Dioxide 16 L 15 L 18 L Anion Gap 14 16 12 BUN 6 L 5 L 5 L Creatinine 0.80 0.80 0.69 Est GFR ( Amer) > 60 > 60 > 60 Est GFR (Non-Af Amer) > 60 > 60 > 60 Glucose 269 H 259 H 190 H Calcium 8.8 8.8 8.6 Magnesium 11/25/16 11/25/16 07:10 07:10 WBC 3.0 L RBC 4.33 L Hgb 12.9 L Hct 37.9 MCV 87 MCH 29.9 MCHC 34.2 RDW 13.2 Plt Count 193 Seg Neutrophils % 39.4 L Lymphocytes % 46.2 H Monocytes % 7.6 Eosinophils % 6.1 H Basophils % 0.7 Absolute Neutrophils 1.2 L Absolute Lymphocytes 1.4 Absolute Monocytes 0.2 Absolute Eosinophils 0.2 Absolute Basophils 0.0 Sodium 138.5 Potassium 3.3 L Chloride 108 H Carbon Dioxide 19 L Anion Gap 12 BUN 4 L Creatinine 0.68 Est GFR ( Amer) > 60 Est GFR (Non-Af Amer) > 60 Glucose 161 H Calcium 8.6 Magnesium 1.9 Assessment & Plan - Diagnosis (1) Diabetes 1.5, managed as type 1 Plan: The patient is doing quite well on 50 units of Lantus. He will continue sliding scale insulin as well. I have consulted the patient educator to see the patient today. Unfortunately the patient does not have insurance so I am unsure whether he will be able to get Lantus. I will have the nursing staff continue to work with the patient regarding insulin injections and checking his blood sugar. (2) DKA (diabetic ketoacidoses) Qualifiers: Diabetes mellitus type: other specified (including CROW) Diabetes mellitus complication detail: without coma Qualified Code(s): E13.10 - Other specified diabetes mellitus with ketoacidosis without coma Is this a current diagnosis for this admission?: YesPlan: The patient's diabetic ketoacidosis is slowly resolving. His anion gap has closed and his CO2 level is improving. (3) Depression Is this a current diagnosis for this admission?: YesPlan: He has been started on Wellbutrin. He seems to be tolerating this quite well (4) Dyslipidemia Is this a current diagnosis for this admission?: YesPlan: He has been started on Lipitor. (5) Hypertension Is this a current diagnosis for this admission?: YesPlan: He was started on 10 mg of lisinopril yesterday. Hopefully this will provide him some renal protection as well. His systolic blood pressure today is in the 120s (6) Morbid obesity Is this a current diagnosis for this admission?: YesPlan: Certainly it would be in his best interest if the patient lost weight. The patient has brought in fast food. I did spend quite a bit of time discussing a healthy diabetic diet. Hopefully the diabetes nurse educator can provide some further education. (7) Tobacco abuse Plan: He has a nicotine patch in place. He has been started on Wellbutrin. He is advised to quit smoking. - Time Time Spent with patient: 25-34 minutes - This included approximately 25 minutes providing diabetes education.
[2016-11-25 11:57] LABS: ANION GAP 14 (5-19); BLOOD UREA NITROGEN 4 mg/dL (7-20); CALCIUM 8.9 mg/dL (8.4-10.2); CARBON DIOXIDE 19 mmol/L (22-30); CHLORIDE 105 mmol/L (98-107); CREATININE RESULT 0.73 mg/dL (0.52-1.25); GLUCOSE 224 mg/dL (75-110); POTASSIUM 3.8 mmol/L (3.6-5.0); SODIUM 138.3 mmol/L (137-145)
[2016-11-25] MEDS: INSULIN REG, HUMAN 100 UNIT/ML 3 ML VIAL (PYX) SUBCUT PRN ×3 (12:39→22:55)
[2016-11-25 16:35] LABS: ANION GAP 15 (5-19); BLOOD UREA NITROGEN 5 mg/dL (7-20); CARBON DIOXIDE 19 mmol/L (22-30); CHLORIDE 103 mmol/L (98-107); CREATININE RESULT 0.71 mg/dL (0.52-1.25); GLUCOSE 241 mg/dL (75-110); POTASSIUM 3.8 mmol/L (3.6-5.0); SODIUM 137.3 mmol/L (137-145)
[2016-11-25 20:11] LABS: ANION GAP 16 (5-19); BLOOD UREA NITROGEN 6 mg/dL (7-20); CALCIUM 9.2 mg/dL (8.4-10.2); CARBON DIOXIDE 20 mmol/L (22-30); CHLORIDE 102 mmol/L (98-107); CREATININE RESULT 0.78 mg/dL (0.52-1.25); GLUCOSE 299 mg/dL (75-110); POTASSIUM 3.8 mmol/L (3.6-5.0); SODIUM 137.9 mmol/L (137-145)
[2016-11-25] MEDS: ATORVASTATIN CALCIUM 40 MG TABLET PO SCH (22:55)
[2016-11-25 23:44] LABS: ANION GAP 13 (5-19); BLOOD UREA NITROGEN 6 mg/dL (7-20); CARBON DIOXIDE 23 mmol/L (22-30); CHLORIDE 102 mmol/L (98-107); CREATININE RESULT 0.77 mg/dL (0.52-1.25); GLUCOSE 205 mg/dL (75-110); POTASSIUM 3.4 mmol/L (3.6-5.0); SODIUM 138.3 mmol/L (137-145)
[2016-11-26 03:56] LABS: ANION GAP 15 (5-19); BLOOD UREA NITROGEN 7 mg/dL (7-20); CALCIUM 9.1 mg/dL (8.4-10.2); CARBON DIOXIDE 22 mmol/L (22-30); CHLORIDE 104 mmol/L (98-107); CREATININE RESULT 0.72 mg/dL (0.52-1.25); GLUCOSE 193 mg/dL (75-110); POTASSIUM 3.3 mmol/L (3.6-5.0); SODIUM 140.8 mmol/L (137-145)
[2016-11-26] MEDS: HEPARIN SOD (PORCINE) 5,000 UNIT/ML 1 ML SYRINGE SUBCUT SCH ×2 (06:21→14:03)
[2016-11-26 08:11] LABS: ABSOLUTE EOSINOPHILS # (AUTO) 0.1 10^3/uL (0.0-0.6); ABSOLUTE LYMPHOCYTES (AUTO) 1.6 10^3/uL (0.5-4.7); ABSOLUTE MONOCYTES (AUTO) 0.3 10^3/uL (0.1-1.4); ABSOLUTE NEUT (AUTO) 1.1 10^3/uL (1.7-8.2); BASOPHILS % (AUTO) 0.7 % (0-2); EOSINOPHILS % (AUTO) 4.8 % (0-6); HEMATOCRIT 38.8 % (37.9-51.0); HEMOGLOBIN 13.1 g/dL (13.5-17.0); HGB HCT DIFFERENCE 0.5; LYMPHOCYTES % (AUTO) 50.8 % (13-45); MEAN CORPUSCULAR HEMOGLOBIN 29.6 pg (27.0-33.4); MEAN CORPUSCULAR HGB CONC 33.7 g/dL (32.0-36.0); MEAN CORPUSCULAR VOLUME 88 fl (80-97); MONOCYTES % (AUTO) 9.4 % (3-13); RED BLOOD COUNT 4.41 10^6/uL (4.35-5.55); SEGMENTED NEUTROPHILS % (AUTO) 34.3 % (42-78); WHITE BLOOD COUNT 3.2 10^3/uL (4.0-10.5)
[2016-11-26 08:30] LABS: ANION GAP 16 (5-19); BLOOD UREA NITROGEN 6 mg/dL (7-20); CARBON DIOXIDE 23 mmol/L (22-30); CHLORIDE 103 mmol/L (98-107); CREATININE RESULT 0.69 mg/dL (0.52-1.25); GLUCOSE 173 mg/dL (75-110); MAGNESIUM 1.9 mg/dL (1.6-2.3); POTASSIUM 3.2 mmol/L (3.6-5.0); SODIUM 141.6 mmol/L (137-145)
[2016-11-26] MEDS: BUPROPION HCL 100 MG TABLET PO SCH (09:24)
[2016-11-26] MEDS: LISINOPRIL 10 MG TABLET PO SCH (09:25)
[2016-11-26] MEDS: DOCUSATE SODIUM 100 MG CAPSULE PO SCH (09:25)
[2016-11-26] MEDS: INSULIN GLARGINE,HUM.REC.ANLOG 300 UNIT/3 ML INSULN.PEN SUBCUT SCH (09:26)
[2016-11-26] MEDS: INSULIN REG, HUMAN 100 UNIT/ML 3 ML VIAL (PYX) SUBCUT PRN ×2 (09:26→12:45)
[2016-11-26] MEDS: NICOTINE 21 MG/24 HR PATCH.TD24 TD SCH (09:27)
[2016-11-26 12:34] VITALS: BP 129/71
[2016-11-26 15:43] LABS: ANION GAP 15 (5-19); BLOOD UREA NITROGEN 8 mg/dL (7-20); CALCIUM 9.8 mg/dL (8.4-10.2); CARBON DIOXIDE 22 mmol/L (22-30); CHLORIDE 100 mmol/L (98-107); CREATININE RESULT 0.73 mg/dL (0.52-1.25); GLUCOSE 334 mg/dL (75-110); POTASSIUM 3.7 mmol/L (3.6-5.0)
--- NOTE | 2016-11-26 16:19 | PDOC DISCHARGE SUMMARY ---
General - Admit/Disc Date/PCP Admission Date/Primary Care Provider: 11/23/16 19:49 Primary care provider: [facility] Discharge Date: 11/26/16 - Discharge Diagnosis (1) Diabetes 1.5, managed as type 1 Summary: The patient has been started on Lantus 50 units daily. I have spoken at length to our discharge planners as well as a pharmacist [facility]. He has an appointment Tuesday [facility]. We will relabel his Lantus pen and they are going to obtain patient assistance for Lantus going forward. (2) DKA (diabetic ketoacidoses) Is this a current diagnosis for this admission?: YesSummary: Resolved (3) Depression Is this a current diagnosis for this admission?: YesSummary: He has been started on Wellbutrin (4) Dyslipidemia Is this a current diagnosis for this admission?: YesSummary: He has been started on Lipitor (5) Hypertension Is this a current diagnosis for this admission?: YesSummary: He has been started on Lisinopril (6) Morbid obesity Is this a current diagnosis for this admission?: YesSummary: He is encouraged to lose weight (7) Tobacco abuse Summary: He is encouraged to quit smoking - Additional Information Resuscitation Status: Full Code Discharge Diet: Diabetic Discharge Activity: Activity As Tolerated, Balance Activity w/Rest, Slowly Increase Activity Home Medications: Ascorbic Acid [Vitamin C 500 mg Tablet] 500 mg PO DAILY 11/24/16 Ibuprofen 800 mg PO PRN PRN 11/24/16 Loratadine [Claritin 10 mg Tablet] 10 mg PO DAILY 11/24/16 Polyethylene Glycol 3350 [Miralax Powder 17 gm/Packet] 17 gm PO DAILY 11/24/16 Atorvastatin Calcium [Lipitor 40 mg Tablet] 40 mg PO QHS #30 tablet 11/26/16 Bupropion HCl [Wellbutrin 100 mg Tablet] 100 mg PO DAILY #30 tablet 11/26/16 Docusate Sodium [Colace 100 mg Capsule] 100 mg PO BID #60 capsule 11/26/16 Lisinopril [Prinivil 10 mg Tablet] 10 mg PO DAILY #30 tablet 11/26/16 History of Present Illness History of Present Illness: MICHELLE Templeton ANIRUDH KIRK is a 21 year old male who presented to the ER with intractable nausea and vomiting. Hospital Course Hospital Course: The patient is a 21-year-old obese -[place] male. His past medical history significant for hypertension, dyslipidemia, depression and tobacco abuse. The patient presented to the emergency room with a two-week history of polydipsia and polyuria. He subsequently developed intractable nausea and vomiting. In the emergency room he was found to have evidence of diabetic ketoacidosis with increased anion gap and a bicarbonate of 9. He was admitted to the hospital and started on an insulin drip. The patient's anion gap closed and the patient was transitioned to 50 units of Lantus. He has received diabetic education during this hospitalization is giving himself insulin injections and has had to check his blood sugar at the time of discharge. Discussions were had with the discharge planners as well as a pharmacist at [facility]. She is given the patient information regarding an assistance program where the patient can get low-cost Lantus. We have made him an appointment follow-up [facility] on Tuesday. He is to take his paperwork with him to this appointment. We are going to relabel his Lantus pen and he will be discharged home today in stable condition. All of this is been discussed with the patient and his and all of their questions were answered at the time of discharge. Physical Exam Vital Signs: Temp Pulse Resp BP Pulse Ox 97.5 F 78 16 139/84 H 100 11/26/16 11:21 11/26/16 14:08 11/26/16 14:08 11/26/16 11:21 11/26/16 11:21 Intake & Output 11/25/16 11/26/16 11/27/16 06:59 06:59 06:59 Intake Total 3852 3724 696 Output Total 221 Balance 3631 3724 696 Weight 120.4 kg 119.4 kg General appearance: PRESENT: no acute distress, well-developed, well-nourished Eye exam: PRESENT: conjunctiva pink, EOMI, PERRLA. ABSENT: scleral icterus Mouth exam: PRESENT: moist, tongue midline Respiratory exam: PRESENT: clear to auscultation pj. ABSENT: rales, rhonchi, wheezes Cardiovascular exam: PRESENT: RRR. ABSENT: diastolic murmur, rubs, systolic murmur GI/Abdominal exam: PRESENT: normal bowel sounds, soft. ABSENT: distended, guarding, mass, organolmegaly, rebound, tenderness Extremities exam: PRESENT: full ROM. ABSENT: calf tenderness, clubbing, pedal edema Neurological exam: PRESENT: alert, awake, oriented to person, oriented to place , oriented to time, oriented to situation, CN II-XII grossly intact. ABSENT: motor sensory deficit Psychiatric exam: PRESENT: depressed Skin exam: PRESENT: dry, intact, warm. ABSENT: cyanosis, rash Results Laboratory Results: 11/26/16 07:25 11/26/16 15:00 11/25/16 11/25/16 11/25/16 16:00 19:32 23:22 WBC RBC Hgb Hct MCV MCH MCHC RDW Plt Count Seg Neutrophils % Lymphocytes % Monocytes % Eosinophils % Basophils % Absolute Neutrophils Absolute Lymphocytes Absolute Monocytes Absolute Eosinophils Absolute Basophils Sodium 137.3 137.9 138.3 Potassium 3.8 3.8 3.4 L Chloride 103 102 102 Carbon Dioxide 19 L 20 L 23 Anion Gap 15 16 13 BUN 5 L 6 L 6 L Creatinine 0.71 0.78 0.77 Est GFR ( Amer) > 60 > 60 > 60 Est GFR (Non-Af Amer) > 60 > 60 > 60 Glucose 241 H 299 H 205 H Calcium 9.0 9.2 9.0 Magnesium 11/26/16 11/26/16 11/26/16 03:19 07:25 07:25 WBC 3.2 L RBC 4.41 Hgb 13.1 L Hct 38.8 MCV 88 MCH 29.6 MCHC 33.7 RDW 13.0 Plt Count 180 Seg Neutrophils % 34.3 L Lymphocytes % 50.8 H Monocytes % 9.4 Eosinophils % 4.8 Basophils % 0.7 Absolute Neutrophils 1.1 L Absolute Lymphocytes 1.6 Absolute Monocytes 0.3 Absolute Eosinophils 0.1 Absolute Basophils 0.0 Sodium 140.8 141.6 Potassium 3.3 L 3.2 L Chloride 104 103 Carbon Dioxide 22 23 Anion Gap 15 16 BUN 7 6 L Creatinine 0.72 0.69 Est GFR ( Amer) > 60 > 60 Est GFR (Non-Af Amer) > 60 > 60 Glucose 193 H 173 H Calcium 9.1 9.0 Magnesium 1.9 11/26/16 15:00 WBC RBC Hgb Hct MCV MCH MCHC RDW Plt Count Seg Neutrophils % Lymphocytes % Monocytes % Eosinophils % Basophils % Absolute Neutrophils Absolute Lymphocytes Absolute Monocytes Absolute Eosinophils Absolute Basophils Sodium 137.0 Potassium 3.7 Chloride 100 Carbon Dioxide 22 Anion Gap 15 BUN 8 Creatinine 0.73 Est GFR ( Amer) > 60 Est GFR (Non-Af Amer) > 60 Glucose 334 H Calcium 9.8 Magnesium Qualifiers PATEINT BEING DISCHARGED WITH ANY OF THE FOLLOWING DIAGNOSIS?: No Plan Discharge Plan: [facility] Time Spent: Greater than 30 Minutes
== END 2016-11-26 16:03 | disposition home or self-care (01) | DRG 639 ==
LOC: ER 16:31 → EH 19:49 → UNDOADMIN 20:08 → EH 20:08 → 3N 11-24 01:45
PROVIDERS: ADMIT Internal Medicine; ATTEND Internal Medicine
PROC: 3E0F73Z Introduction of Anti-inflammatory into Respiratory Tract, Via Natural or Artificial Opening (ICD-10-PCS; principal; 2016-11-23)
DX: E10.10 Type 1 diabetes mellitus with ketoacidosis without coma (principal); E66.01 Morbid (severe) obesity due to excess calories; Z68.36 Body mass index [BMI] 36.0-36.9, adult; F32.9 Major depressive disorder, single episode, unspecified; E78.5 Hyperlipidemia, unspecified; I10 Essential (primary) hypertension; F17.210 Nicotine dependence, cigarettes, uncomplicated; Z79.899 Other long term (current) drug therapy; Z82.3 Family history of stroke; Z83.3 Family history of diabetes mellitus; Z84.89 Family history of other specified conditions; Z82.61 Family history of arthritis
CPT/HCPCS: 36415; 80048; 80053; 80307; 81001; 82803; 82962; 83036; 83605; 83735; 85025; 85027; 87070; 87077; 87205; 93005; 93010; 96374; 99284; J1644; J1815; J2405; J3480; J3490; J7030

== ENCOUNTER 2017-07-12 09:03 | Emergency (ER) | payer MEDICAID, OTHER ==
[2017-07-12] MEDS ORDERED: OXYCODONE-ACETAMINOPHEN 5-325 MG TABLET PO ONE (09:36)
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
[2017-07-12 09:56] LABS: APPEARANCE,URINE CLEAR; BILIRUBIN,URINE NEGATIVE (NEGATIVE); GLUCOSE, URINE 150 mg/dL (NEGATIVE); KETONES,URINE NEGATIVE (NEGATIVE); LEUKOCYTE ESTERASE,URINE NEGATIVE (NEGATIVE); NITRITE,URINE NEGATIVE (NEGATIVE); PROTEIN,URINE 100 mg/dL (NEGATIVE); URINE SPECIFIC GRAVITY 1.019
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
[2017-07-12 14:45] VITALS: BP 159/83
== END 2017-07-12 14:45 | disposition home or self-care (01) ==
LOC: ER 09:03
DX: M54.2 Cervicalgia (principal); V49.40XA Driver injured in collision with unspecified motor vehicles in traffic accident, initial encounter; M54.5 Low back pain; I10 Essential (primary) hypertension; E11.9 Type 2 diabetes mellitus without complications; F17.200 Nicotine dependence, unspecified, uncomplicated
CPT/HCPCS: 72070; 72110; 72125; 81001; 99285

== ENCOUNTER 2018-01-09 09:25 | Inpatient (IN) | payer SELFPAY ==
--- NOTE | 2018-01-09 11:12 | ER Document Report ---
ED Medical Screen (RME) - General Chief Complaint: Abdominal Pain Stated Complaint: VOMITING, ABDOMINAL PAIN, DIARRHEA Time Seen by Provider: 01/09/18 10:56 Mode of Arrival: Wheelchair Information source: Patient, Relative Notes: Pt is a 22 year old male who presents to the ER today for n/vomiting/diarrhea x 1 month with diarrhea just starting yesterday. Pt is a diabetic who's been off his medications for a year, was on lantus. He admits to abdominal pain throughout his abdomen in the middle and all across. states he almost passed out in the waiting room, that his eyes rolled back in his head. Pt is alert now. TRAVEL OUTSIDE OF THE [place] IN LAST 30 DAYS: No - Related Data Allergies/Adverse Reactions: No Known Allergies Allergy (Verified 01/09/18 09:31) Past Medical History - General Information source: Patient, Relative - Past Medical History Cardiac Medical History: Reports: Hx Hypertension Endocrine Medical History: Reports: Hx Diabetes Mellitus Type 2 Renal/ Medical History: Denies: Hx Peritoneal Dialysis Psychiatric Medical History: Reports: Hx Depression Past Surgical History: Reports: Hx Tonsillectomy Review of Systems - Review of Systems Gastrointestinal: See HPI Physical Exam - Vital signs Vitals: Temp Pulse Resp BP Pulse Ox 98.3 F 107 H 16 145/101 H 97 01/09/18 09:37 01/09/18 09:37 01/09/18 09:37 01/09/18 09:37 01/09/18 09:37 - Notes Notes: General: sluggish but arousable and answers questions appropriately CV: tachycardic with regular rhythm abd: diffuse tenderness, no rebound or guarding Course - Vital Signs Vital signs: Temp Pulse Resp BP Pulse Ox 98.3 F 107 H 16 145/101 H 97 01/09/18 09:37 01/09/18 09:37 01/09/18 09:37 01/09/18 09:37 01/09/18 09:37
[2018-01-09] MEDS ORDERED: NORMAL SALINE 1000 ML 1,000 ML IV ONE ×3 (11:29→14:38)
[2018-01-09 11:59] LABS: ABSOLUTE EOSINOPHILS # (AUTO) 0.1 10^3/uL (0.0-0.6); ABSOLUTE LYMPHOCYTES (AUTO) 2.1 10^3/uL (0.5-4.7); ABSOLUTE MONOCYTES (AUTO) 0.5 10^3/uL (0.1-1.4); ABSOLUTE NEUT (AUTO) 4.7 10^3/uL (1.7-8.2); BASOPHILS % (AUTO) 0.7 % (0-2); EOSINOPHILS % (AUTO) 1.7 % (0-6); HEMATOCRIT 47.8 % (37.9-51.0); HEMOGLOBIN 16.7 g/dL (13.5-17.0); LYMPHOCYTES % (AUTO) 27.7 % (13-45); MEAN CORPUSCULAR HEMOGLOBIN 30.6 pg (27.0-33.4); MEAN CORPUSCULAR HGB CONC 34.9 g/dL (32.0-36.0); MEAN CORPUSCULAR VOLUME 88 fl (80-97); MONOCYTES % (AUTO) 6.5 % (3-13); PLATELET COUNT 262 10^3/uL (150-450); RED BLOOD COUNT 5.45 10^6/uL (4.35-5.55); SEGMENTED NEUTROPHILS % (AUTO) 63.4 % (42-78); TOTAL CELLS COUNTED % (AUTO) 100 %; WHITE BLOOD COUNT 7.4 10^3/uL (4.0-10.5)
[2018-01-09 12:22] LABS: ALANINE AMINOTRANSFERASE 33 U/L (21-72); ALBUMIN 4.9 g/dL (3.5-5.0); ALKALINE PHOSPHATASE 143 U/L (38-126); ASPARTATE AMINO TRANSFERASE 18 U/L (17-59); BILIRUBIN,DIRECT 0.6 mg/dL (0.0-0.4); BILIRUBIN,TOTAL 0.9 mg/dL (0.2-1.3); BLOOD UREA NITROGEN 18 mg/dL (7-20); CALCIUM 10.1 mg/dL (8.4-10.2); CREATINE KINASE 230 U/L (55-170); LIPASE 106.7 U/L (23-300); POTASSIUM 4.3 mmol/L (3.6-5.0)
[2018-01-09 12:28] LABS: CARBON DIOXIDE 13 mmol/L (22-30); CHLORIDE 95 mmol/L (98-107); SODIUM 136.2 mmol/L (137-145)
[2018-01-09 12:38] LABS: ANION GAP 28 (5-19)
[2018-01-09 12:39] LABS: GLUCOSE 401 mg/dL (75-110)
[2018-01-09 12:46] LABS: VENOUS BLOOD BASE EXCESS -7.4 mmol/L; VENOUS BLOOD PCO2 32.2 mmHg (35-63); VENOUS BLOOD PH 7.34 (7.30-7.42)
[2018-01-09 12:46] LABS: APPEARANCE,URINE CLEAR; BILIRUBIN,URINE NEGATIVE (NEGATIVE); COLOR,URINE STRAW; GLUCOSE, URINE >=500 mg/dL (NEGATIVE); KETONES,URINE 80 mg/dL (NEGATIVE); LEUKOCYTE ESTERASE,URINE NEGATIVE (NEGATIVE); NITRITE,URINE NEGATIVE (NEGATIVE); PROTEIN,URINE NEGATIVE (NEGATIVE); URINE SPECIFIC GRAVITY 1.032; UROBILINOGEN,URINE NEGATIVE mg/dL (<2.0)
[2018-01-09] MEDS ORDERED: INSULIN REG, HUMAN 100 UNIT/ML 3 ML VIAL (PYX) IV ONE (12:53)
--- NOTE | 2018-01-09 12:59 | ER Document Report ---
ED General - General Mode of Arrival: Wheelchair Information source: Patient TRAVEL OUTSIDE OF THE [place] IN LAST 30 DAYS: No <DICK GIBSON - Last Filed: 01/09/18 13:17> <AARON VAIL - Last Filed: 01/09/18 14:48> - General Chief Complaint: Abdominal Pain Stated Complaint: VOMITING, ABDOMINAL PAIN, DIARRHEA Time Seen by Provider: 01/09/18 10:56 Notes: Patient is a 22 year old male with diabetes presents to the emergency department complaining of multiple symptoms including intermittent nausea, vomiting and frequent urination onset 1 month ago and diarrhea onset yesterday. Patient states the last time he vomited was today and prior to today was approximately 1 week ago. Patient states he was diagnosed with diabetes approximately 1 year 3 months ago. He states he stopped taking his medication of Lantus because he did not like the way it made him feel. (DICK GIBSON) - Related Data Allergies/Adverse Reactions: No Known Allergies Allergy (Verified 01/09/18 09:31) Past Medical History - General Information source: Patient, Relative - Social History Smoking Status: Current Every Day Smoker Cigarette use (# per day): Yes - 1/2 a pack Chew tobacco use (# tins/day): No Frequency of alcohol use: Social Drug Abuse: None Family History: Arthritis, CVA, DM, Hypertension Patient has suicidal ideation: No Patient has homicidal ideation: No - Past Medical History Cardiac Medical History: Reports: Hx Hypertension Endocrine Medical History: Reports: Hx Diabetes Mellitus Type 2 Psychiatric Medical History: Reports: Hx Depression Past Surgical History: Reports: Hx Tonsillectomy - Immunizations Hx Pneumococcal Vaccination: 08/01/11 <DICK GIBSON - Last Filed: 01/09/18 13:17> Review of Systems - Review of Systems Constitutional: No symptoms reported EENT: No symptoms reported Cardiovascular: No symptoms reported Respiratory: No symptoms reported Gastrointestinal: See HPI, Diarrhea, Nausea, Vomiting Genitourinary: See HPI, Frequency Male Genitourinary: No symptoms reported Musculoskeletal: No symptoms reported Skin: No symptoms reported Hematologic/Lymphatic: No symptoms reported Neurological/Psychological: No symptoms reported -: Yes All other systems reviewed and negative <DICK GIBSON - Last Filed: 01/09/18 13:17> Physical Exam - General General appearance: Alert, Other - Appears sluggish, strong ketone odor. In distress: None - HEENT Head: Normocephalic, Atraumatic Eyes: Normal Conjunctiva: Normal Extraocular movements intact: Yes Pupils: PERRL Corrective lenses worn: Yes Mucous membranes: Dry Neck: Normal - Respiratory Respiratory status: No respiratory distress, Tachypnea Chest status: Nontender Breath sounds: Normal Chest palpation: Normal - Cardiovascular Rhythm: Regular Heart sounds: Normal auscultation Murmur: No Friction rub: No Gallop: None auscultated - Abdominal Inspection: Normal Distension: No distension Bowel sounds: Normal Tenderness: Tender - Diffusely tender across the lower abdomen. Organomegaly: No organomegaly - Back Back: Normal - Extremities General upper extremity: Normal ROM General lower extremity: Normal ROM - Neurological Neuro grossly intact: Yes Cognition: Normal Orientation: AAOx4 [place] Coma Scale Eye Opening: Spontaneous [place] Coma Scale Verbal: Oriented Patricia Coma Scale Motor: Obeys Commands Patricai Coma Scale Total: 15 Speech: Normal - Psychological Associated symptoms: Normal affect, Normal mood - Skin Skin Temperature: Warm Skin Moisture: Dry Skin Color: Normal <DICK GIBSON - Last Filed: 01/09/18 13:17> - Vital signs Vitals: Temp Pulse Resp BP Pulse Ox 98.3 F 107 H 16 145/101 H 97 01/09/18 09:37 01/09/18 09:37 01/09/18 09:37 01/09/18 09:37 01/09/18 09:37 Course - Laboratory Result Diagrams: 01/09/18 11:45 01/09/18 11:45 <DICK GIBSON - Last Filed: 01/09/18 13:17> - Laboratory Result Diagrams: 01/09/18 11:45 01/09/18 11:45 - EKG Interpretation by Nm EKG shows normal: Sinus rhythm, [place], QRS Complexes, ST-T Waves. abnormal: Intervals - Prolonged QT interval Rate: Normal - 81 Rhythm: NSR - Consults Dr. Scott Daugherty Time consulted: 13:40 Consulted provider: will come to ER <AARON VAIL - Last Filed: 01/09/18 14:48> - Vital Signs Vital signs: Temp Pulse Resp BP Pulse Ox 98.3 F 107 H 16 145/101 H 97 01/09/18 09:37 01/09/18 09:37 01/09/18 09:37 01/09/18 09:37 01/09/18 09:37 - Laboratory Laboratory results interpreted by me: 01/09/18 01/09/18 01/09/18 11:45 11:45 11:45 VBG pCO2 VBG HCO3 Sodium 136.2 L Chloride 95 L Carbon Dioxide 13 L Anion Gap 28 H Glucose 401 H* POC Glucose Hemoglobin A1c % > 14.0 H Direct Bilirubin 0.6 H Alkaline Phosphatase 143 H Creatine Kinase 230 H Urine Glucose (UA) >=500 H Urine Ketones 80 H Urine Blood SMALL H 01/09/18 01/09/18 11:53 12:35 VBG pCO2 32.2 L VBG HCO3 17.0 L Sodium Chloride Carbon Dioxide Anion Gap Glucose POC Glucose 397 H Hemoglobin A1c % Direct Bilirubin Alkaline Phosphatase Creatine Kinase Urine Glucose (UA) Urine Ketones Urine Blood Discharge <DICK GIBSON - Last Filed: 01/09/18 13:17> - Discharge Admitting Provider: Hospitalist Unit Admitted: [facility] <AARON VAIL - Last Filed: 01/09/18 14:48> - Discharge Clinical Impression: Morbid obesity DKA (diabetic ketoacidoses) Qualifiers: Diabetes mellitus type: type 2 Diabetes mellitus complication detail: without coma Qualified Code(s): E11.10 - Type 2 diabetes mellitus with ketoacidosis without coma Hypertension Qualifiers: Hypertension type: essential hypertension Qualified Code(s): I10 - Essential ( primary) hypertension Abdominal pain Qualifiers: Abdominal location: lower abdomen, unspecified Qualified Code(s): R10.30 - Lower abdominal pain, unspecified Condition: Good Disposition: ADMITTED INPATIENT Referrals: OCTAVIO PERALTA MD [Primary Care Provider] - Follow up as needed Scribe Attestation: 01/09/18 14:48 I personally performed the services described in the documentation, reviewed and edited the documentation which was dictated to the scribe in my presence, and it accurately records my words and actions. (AARON VAIL) Scribe Documentation - Scribe Written by Scribe:: Karol Cheng, 01/09/2018 01:02 acting as scribe for :: Jenna <ARTHUR,TAMAYA - Last Filed: 01/09/18 13:17>
[2018-01-09 13:01] LABS: URINE AMPHETAMINES SCREEN NEGATIVE; URINE BARBITURATES SCREEN NEGATIVE; URINE BENZODIAZEPINES SCREEN NEGATIVE; URINE COCAINE SCREEN NEGATIVE; URINE MARIJUANA (THC) SCREEN NEGATIVE; URINE METHADONE SCREEN NEGATIVE; URINE PHENCYCLIDINE SCREEN NEGATIVE
[2018-01-09] MEDS ORDERED: ACETAMINOPHEN 650 MG SUPP.RECT PR PRN (14:28)
[2018-01-09] MEDS ORDERED: ALBUTEROL SULFATE 0.083% NEB 2.5 MG/3 ML AMPUL NEB PRN (14:28)
[2018-01-09] MEDS ORDERED: ACETAMINOPHEN 325 MG TABLET PO PRN (14:28)
[2018-01-09] MEDS ORDERED: RINGERS SOLUTION,LACTATED 1,000 ML IV PRN (14:28)
[2018-01-09] MEDS ORDERED: ONDANSETRON HCL INJ/PF 4 MG/2 ML SDV IV PRN (14:28)
[2018-01-09] MEDS ORDERED: DEXTROSE 40% GEL 15 GM TUBE PO PRN ×2 (14:35)
[2018-01-09] MEDS ORDERED: DEXTROSE 50%-WATER 25 GM/50 ML DISP.SYRIN IV PRN ×2 (14:35)
[2018-01-09] MEDS ORDERED: NORMAL SALINE 100 ML with INSULIN REGULAR, HUMAN 100 UNIT IV PRN ×2 (14:35)
[2018-01-09] MEDS ORDERED: GLUCAGON,HUMAN RECOMB 1 MG INJ IM PRN (14:35)
[2018-01-09] MEDS ORDERED: HYDRALAZINE HCL INJ/PF 20 MG/1 ML SDV IV PRN (16:38)
[2018-01-09 17:27] LABS: ALBUMIN 4.1 g/dL (3.5-5.0); BLOOD UREA NITROGEN 14 mg/dL (7-20); CALCIUM 8.7 mg/dL (8.4-10.2); CARBON DIOXIDE 19 mmol/L (22-30); POTASSIUM 4.4 mmol/L (3.6-5.0); SODIUM 142.2 mmol/L (137-145)
[2018-01-09 17:28] LABS: GLUCOSE 214 mg/dL (75-110); PHOSPHORUS 3.9 mg/dL (2.5-4.5)
[2018-01-09 17:29] LABS: CHLORIDE 102 mmol/L (98-107)
[2018-01-09 17:40] LABS: ANION GAP 19 (5-19)
--- NOTE | 2018-01-09 18:27 | EKG REPORT ---
SEVERITY:- ABNORMAL ECG - SINUS RHYTHM BORDERLINE T WAVE ABNORMALITIES ST ELEVATION NONSPECIFIC PROLONGED QT INTERVAL : Confirmed by: Gurmeet Corona MD 09-Jan-2018 18:26:47
--- NOTE | 2018-01-09 19:33 | PDOC H&P ---
History of Present Illness Admission Date/PCP: 01/09/18 16:32 OCTAVIO PERALTA MD Patient complains of: Nausea and multiple episodes of vomiting History of Present Illness: MICHELLE OLEARY JR is a 22 year old male With past medical history of diabetes mellitus type 2, hypertension. States that he used to take metformin and lisinopril approximately 6 months ago. He stopped taking it, and he is unable to explain why. Patient lives with his significant other with multiple kids in the house. One kid recently had a gastroenteritis and was seen in the emergency department. Patient describes feeling nauseated and having multiple bouts of vomiting began at 4 AM this morning. He describes relative constipation prior to this episode for the prior couple of days. Patient presented with a blood sugar greater than 400, and a blood CO2 of 13. He was lethargic and groggy. He was started on an insulin drip in the emergency department and given 2 L boluses of normal saline in the ED. Past Medical History Cardiac Medical History: Reports: Hypertension Endocrine Medical History: Reports: Diabetes Mellitus Type 2 Psychiatric Medical History: Reports: Depression Past Surgical History Past Surgical History: Reports: Tonsillectomy Social History Smoking Status: Current Every Day Smoker Frequency of Alcohol Use: Occasional Hx Recreational Drug Use: No Hx Prescription Drug Abuse: No Family History Family History: Arthritis, CVA, DM, Hypertension Family History: father had DM, mother had DM Parental Family History Reviewed: Yes Children Family History Reviewed: Yes Sibling(s) Family History Reviewed.: Yes Medication/Allergy Home Medications: Ibuprofen [Motrin 800 mg Tablet] 800 mg PO TIDP PRN 01/09/18 Allergies/Adverse Reactions: No Known Allergies Allergy (Verified 01/09/18 09:31) Review of Systems Constitutional: ABSENT: fever(s), headache(s) Eyes: ABSENT: visual disturbances Ears: ABSENT: hearing changes Nose, Mouth, and Throat: ABSENT: mouth pain, sore throat Cardiovascular: ABSENT: edema, orthropnea Respiratory: ABSENT: dyspnea Gastrointestinal: PRESENT: abdominal pain, nausea, vomiting Genitourinary: ABSENT: dysuria, hematuria Musculoskeletal: ABSENT: deformity Integumentary: ABSENT: lesions, pruritus Neurological: ABSENT: focal weakness, frequent falls Psychiatric: ABSENT: hallucinations Endocrine: ABSENT: cold intolerance, heat intolerance Hematologic/Lymphatic: ABSENT: easy bruising, lymphadenopathy Physical Exam Vital Signs: Temp Pulse Resp BP Pulse Ox 98.3 F 107 H 16 145/101 H 97 01/09/18 09:37 01/09/18 09:37 01/09/18 09:37 01/09/18 09:37 01/09/18 09:37 General appearance: PRESENT: mild distress Head exam: PRESENT: atraumatic, normocephalic Eye exam: PRESENT: EOMI, PERRLA. ABSENT: nystagmus Ear exam: PRESENT: normal external ear exam. ABSENT: drainage Mouth exam: PRESENT: dry mucosa. ABSENT: moist Teeth exam: ABSENT: dental caries Neck exam: ABSENT: JVD, tenderness, thyromegaly Respiratory exam: ABSENT: accessory muscle use, rales, rhonchi, stridor Cardiovascular exam: PRESENT: RRR, +S1, +S2. ABSENT: bradycardia, irregular rhythm, systolic murmur Pulses: PRESENT: normal carotid pulses, normal radial pulses, normal dorsalis pedis pul GI/Abdominal exam: PRESENT: tenderness. ABSENT: ascites, distended, firm, guarding, hyperactive bowel sounds, hypoactive bowel sounds Extremities exam: ABSENT: joint swelling, pedal edema Musculoskeletal exam: PRESENT: full ROM, normal inspection Neurological exam: PRESENT: altered, oriented to person, oriented to place, oriented to time Psychiatric exam: PRESENT: depressed, flat affect. ABSENT: anxious Focused psych exam: ABSENT: catatonic, paranoid, pressured speech Skin exam: ABSENT: cyanosis, dry, pallor Assessment & Plan - Diagnosis (1) DKA (diabetic ketoacidoses) Qualifiers: Diabetes mellitus type: type 2 Diabetes mellitus complication detail: without coma Qualified Code(s): E11.10 - Type 2 diabetes mellitus with ketoacidosis without coma Plan: continue insulin drip, admit to intermediate care level. recheck renal lab for monitoring or anion gap closure continue IVF support, give additional 1L NS support, and place on a rate of LR 150cc/hr. Anticipate subq conversion of insulin soon. (2) Hypertension Qualifiers: Hypertension type: essential hypertension Qualified Code(s): I10 - Essential (primary) hypertension Plan: prn hydralazine IV added with use parameters, will start lisinopril before d/c (3) Abdominal pain Qualifiers: Abdominal location: lower abdomen, unspecified Qualified Code(s): R10.30 - Lower abdominal pain, unspecified Plan: secondary to DKA. prn pain medications, otherwise: correct DKA (4) Morbid obesity Plan: encourage weight loss, and calorie reduction in diet. (5) Depression Plan: will re-evaluate this after DKA has resolved - Time Time Spent: 30 to 50 Minutes - Inpatient Certification Based on my medical assessment, after consideration of the patient's comorbidities, presenting symptoms, or acuity I expect that the services needed warrant INPATIENT care.: Yes I certify that my determination is in accordance with my understanding of Medicare's requirements for reasonable and necessary INPATIENT services [42 CFR 412.3e].: Yes Medical Necessity: Need For IV Fluids, Need For Continuous Telemetry Monitoring
[2018-01-10] MEDS ORDERED: HYDRALAZINE HCL INJ/PF 20 MG/1 ML SDV IV PRN (00:46)
[2018-01-10 01:22] LABS: ANION GAP 18 (5-19); BLOOD UREA NITROGEN 11 mg/dL (7-20); CALCIUM 8.8 mg/dL (8.4-10.2); CARBON DIOXIDE 17 mmol/L (22-30); CHLORIDE 108 mmol/L (98-107); GLUCOSE 104 mg/dL (75-110); POTASSIUM 3.6 mmol/L (3.6-5.0); SODIUM 143.4 mmol/L (137-145)
[2018-01-10] MEDS ORDERED: POTASSI CL 20 MEQ/50 ML RIDER 20 MEQ/50 ML RTUPB IV ONE (01:45)
[2018-01-10] MEDS: POTASSIUM CHLORIDE 20 MEQ/50 ML RTU IV SCH ×2 (03:23→03:47)
[2018-01-10 07:03] LABS: ABSOLUTE EOSINOPHILS # (AUTO) 0.1 10^3/uL (0.0-0.6); ABSOLUTE LYMPHOCYTES (AUTO) 1.5 10^3/uL (0.5-4.7); ABSOLUTE MONOCYTES (AUTO) 0.4 10^3/uL (0.1-1.4); ABSOLUTE NEUT (AUTO) 2.6 10^3/uL (1.7-8.2); BASOPHILS % (AUTO) 0.7 % (0-2); EOSINOPHILS % (AUTO) 2.6 % (0-6); HEMATOCRIT 40.6 % (37.9-51.0); LYMPHOCYTES % (AUTO) 32.6 % (13-45); MEAN CORPUSCULAR HEMOGLOBIN 29.9 pg (27.0-33.4); MEAN CORPUSCULAR HGB CONC 34.2 g/dL (32.0-36.0); MEAN CORPUSCULAR VOLUME 88 fl (80-97); MONOCYTES % (AUTO) 8.2 % (3-13); PLATELET COUNT 172 10^3/uL (150-450); RED BLOOD COUNT 4.63 10^6/uL (4.35-5.55); RED CELL DISTRIBUTION WIDTH 13.2 % (11.5-14.0); SEGMENTED NEUTROPHILS % (AUTO) 55.9 % (42-78); TOTAL CELLS COUNTED % (AUTO) 100 %; WHITE BLOOD COUNT 4.6 10^3/uL (4.0-10.5)
[2018-01-10 07:25] LABS: ANION GAP 15 (5-19); BLOOD UREA NITROGEN 10 mg/dL (7-20); CALCIUM 8.8 mg/dL (8.4-10.2); CARBON DIOXIDE 16 mmol/L (22-30); CHLORIDE 107 mmol/L (98-107); GLUCOSE 188 mg/dL (75-110); POTASSIUM 4.5 mmol/L (3.6-5.0); SODIUM 138.2 mmol/L (137-145)
[2018-01-10 07:28] LABS: HEMOGLOBIN 13.9 g/dL (13.5-17.0)
[2018-01-10] MEDS: HUM INSULIN NPH/REG INSULIN HM 100 UNIT/1 ML 3 ML SUBCUT SCH ×2 (09:16→17:57)
[2018-01-10] MEDS: INSULIN LISPRO 100 UNIT/ML 3 ML VIAL SUBCUT PRN ×4 (09:16→22:10)
[2018-01-10] MEDS ORDERED: POLYETHYLENE GLYCOL 3350 POWDER 17 GM/1 PACKET PO ONE (09:40)
[2018-01-10] MEDS ORDERED: RINGERS SOLUTION,LACTATED 1,000 ML IV PRN (09:42)
[2018-01-10] MEDS: DOCUSATE SODIUM 100 MG CAPSULE PO SCH ×2 (10:13→17:57)
--- NOTE | 2018-01-10 11:37 | RADIOLOGY REPORT (SQ) ---
EXAM DESCRIPTION: KUB/ABDOMEN (SINGLE VIEW) COMPLETED DATE/TIME: 01/10/2018 11:24 am REASON FOR STUDY: abdominal pain COMPARISON: None. NUMBER OF VIEWS: One view. TECHNIQUE: Supine radiographic image of the abdomen acquired. LIMITATIONS: None. FINDINGS: BOWEL GAS PATTERN: Nonspecific nonobstructive bowel gas pattern with gas and stool through out the colon and air in nondistended small bowel loops in the mid abdomen. CALCIFICATIONS: No suspicious calcifications. SOFT TISSUES: No gross mass or suggestion of organomegaly. HARDWARE: None in the abdomen. BONES: No acute fracture. No worrisome bone lesions. OTHER: No other significant finding. IMPRESSION: NO RADIOGRAPHIC EVIDENCE FOR ACUTE ABDOMINAL DISEASE. TECHNICAL DOCUMENTATION: JOB ID: [id number] [employer]- All Rights Reserved Reading location - IP/workstation name: [email or web address]
--- NOTE | 2018-01-10 19:34 | PDOC PROGRESS REPORT ---
Subjective Progress Note for:: 01/10/18 Subjective:: 22-year-old male presenting with diabetic ketoacidosis. Gap now reduced to 15 on insulin infusion on admission. Patient with improved glucose control, subcu converted to 70/30 insulin overnight, will escalate 70/30 insulin dosing for improved blood sugar control, continue to monitor Accu-Cheks. Discussed insulin needs with business planner today. Patient was still lethargic and had some residual abdominal discomfort. KUB was obtained and appears benign. Possible gastroparesis in this gentleman with hypoactive BS and recent history of constipation. Monitor on diet as blood sugar is better controlled. Reason For Visit: DIABETIC KETOACIDOSIS Physical Exam Vital Signs: Temp Pulse Resp BP Pulse Ox 97.8 F 86 18 139/84 H 98 01/10/18 16:42 01/10/18 16:42 01/10/18 16:42 01/10/18 16:42 01/10/18 16:42 Intake & Output 01/09/18 01/10/18 01/11/18 06:59 06:59 06:59 Intake Total 2004 696 Output Total 800 Balance 1204 696 Weight 108.5 kg General appearance: PRESENT: no acute distress, obese Head exam: PRESENT: atraumatic, normocephalic Eye exam: PRESENT: EOMI, PERRLA Ear exam: PRESENT: normal external ear exam. ABSENT: bleeding Mouth exam: PRESENT: moist Throat exam: ABSENT: tonsillar erythema, tonsillar exudate Neck exam: PRESENT: full ROM. ABSENT: JVD, thyromegaly, tracheal deviation Respiratory exam: ABSENT: prolonged expiratory phas, rales, rhonchi, wheezes Cardiovascular exam: PRESENT: RRR, +S1, +S2 Pulses: PRESENT: normal radial pulses, normal dorsalis pedis pul GI/Abdominal exam: PRESENT: hypoactive bowel sounds. ABSENT: rigid, soft Extremities exam: ABSENT: joint swelling, pedal edema Musculoskeletal exam: PRESENT: ambulatory, full ROM Neurological exam: PRESENT: alert, oriented to person, oriented to place, oriented to time, oriented to situation, CN II-XII grossly intact Psychiatric exam: PRESENT: flat affect. ABSENT: agitated, anxious Focused psych exam: ABSENT: delusional, paranoid, pressured speech Skin exam: PRESENT: normal color. ABSENT: mottled, pallor Results Laboratory Results: 01/10/18 06:42 06/12/18 06:42 01/10/18 01/10/18 01/10/18 00:47 06:42 06:42 WBC 4.6 RBC 4.63 Hgb 13.9 D Hct 40.6 MCV 88 MCH 29.9 MCHC 34.2 RDW 13.2 Plt Count 172 Seg Neutrophils % 55.9 Lymphocytes % 32.6 Monocytes % 8.2 Eosinophils % 2.6 Basophils % 0.7 Absolute Neutrophils 2.6 Absolute Lymphocytes 1.5 Absolute Monocytes 0.4 Absolute Eosinophils 0.1 Absolute Basophils 0.0 Sodium 143.4 138.2 Potassium 3.6 4.5 Chloride 108 H 107 Carbon Dioxide 17 L 16 L Anion Gap 18 15 BUN 11 10 Creatinine 0.72 0.77 Est GFR ( Amer) > 60 > 60 Est GFR (Non-Af Amer) > 60 > 60 Glucose 104 188 H Calcium 8.8 8.8 Magnesium 1.7 Impressions: KUB X-Ray 01/10/18 00:00 IMPRESSION: NO RADIOGRAPHIC EVIDENCE FOR ACUTE ABDOMINAL DISEASE. Assessment & Plan - Diagnosis (1) DKA (diabetic ketoacidoses) Qualifiers: Diabetes mellitus type: type 2 Diabetes mellitus complication detail: without coma Qualified Code(s): E11.10 - Type 2 diabetes mellitus with ketoacidosis without coma Is this a current diagnosis for this admission?: Yes Plan: Now converted to subcu insulin, titrate up his 70/30 dosing for blood sugar control. Continue sliding scale lispro. Anion gap has improved to 15. Possible discharge in the next 24-48 hours. (2) Hypertension Qualifiers: Hypertension type: essential hypertension Qualified Code(s): I10 - Essential (primary) hypertension Is this a current diagnosis for this admission?: Yes Plan: Blood pressure reasonably controlled at present, prn hydralazine as needed (3) Abdominal pain Qualifiers: Abdominal location: lower abdomen, unspecified Qualified Code(s): R10.30 - Lower abdominal pain, unspecified Is this a current diagnosis for this admission?: Yes Plan: Abdominal pain appears somewhat diffuse on examination. KUB was obtained that is not significant for small bowel obstruction or ileus. Possibly some mild gastroparesis. Encouraging diet, stool softeners. (4) Morbid obesity Is this a current diagnosis for this admission?: Yes Plan: Encourage weight loss (5) Depression Is this a current diagnosis for this admission?: Yes Plan: We will give a trial of Prozac. Patient appears lethargic and depressed about his current condition. - Time Time Spent with patient: 15-24 minutes - Inpatient Certification Based on my medical assessment, after consideration of the patient's comorbidities, presenting symptoms, or acuity I expect that the services needed warrant INPATIENT care.: Yes I certify that my determination is in accordance with my understanding of Medicare's requirements for reasonable and necessary INPATIENT services [42 CFR 412.3e].: Yes Medical Necessity: Need Close Monitoring Due to Risk of Patient Decompensation, Need For IV Fluids - Plan Summary Plan Summary: Patient will need insulin therapy at discharge dissipated discharge may be in the next 24-48 hours. Will monitor patient's improvement and diet intake, and abdominal discomfort. Titrate insulin for blood sugar control.
[2018-01-10] MEDS: FLUOXETINE HCL 20 MG CAPSULE PO SCH (22:08)
[2018-01-11 05:12] LABS: HEMOGLOBIN 13.6 g/dL (13.5-17.0); MEAN CORPUSCULAR HEMOGLOBIN 30.1 pg (27.0-33.4); MEAN CORPUSCULAR HGB CONC 34.1 g/dL (32.0-36.0); MEAN CORPUSCULAR VOLUME 88 fl (80-97); PLATELET COUNT 173 10^3/uL (150-450); RED BLOOD COUNT 4.52 10^6/uL (4.35-5.55); RED CELL DISTRIBUTION WIDTH 13.1 % (11.5-14.0); WHITE BLOOD COUNT 4.4 10^3/uL (4.0-10.5)
[2018-01-11 05:47] LABS: ALBUMIN 3.3 g/dL (3.5-5.0); ANION GAP 13 (5-19); BLOOD UREA NITROGEN 10 mg/dL (7-20); CALCIUM 8.9 mg/dL (8.4-10.2); CARBON DIOXIDE 21 mmol/L (22-30); CHLORIDE 106 mmol/L (98-107); GLUCOSE 147 mg/dL (75-110); PHOSPHORUS 3.8 mg/dL (2.5-4.5); POTASSIUM 3.7 mmol/L (3.6-5.0)
[2018-01-11] MEDS: DOCUSATE SODIUM 100 MG CAPSULE PO SCH (09:25)
[2018-01-11] MEDS: INSULIN LISPRO 100 UNIT/ML 3 ML VIAL SUBCUT PRN ×4 (09:26→22:10)
[2018-01-11] MEDS: SENNOSIDES/DOCUSATE 8.6-50 MG 1 EACH TABLET PO SCH (09:56)
[2018-01-11] MEDS: POLYETHYLENE GLYCOL 3350 POWDER 17 GM/1 PACKET PO SCH ×2 (09:56→18:08)
[2018-01-11] MEDS ORDERED: HUM INSULIN NPH/REG INSULIN HM 100 UNIT/1 ML 3 ML SUBCUT SCH (10:00)
--- NOTE | 2018-01-11 14:16 | PDOC PROGRESS REPORT ---
Subjective Progress Note for:: 01/11/18 Subjective:: Feeling slightly better. However continues to endorse abdominal pain that is bandlike across his belly. When prompted about bowel movements, states that his last BM was on Tuesday AM. He has been tolerating PO. Received miralax and colace and able to pass gas. NO other complaints. Reason For Visit: DIABETIC KETOACIDOSIS Physical Exam Vital Signs: Temp Pulse Resp BP Pulse Ox 97.6 F 80 16 122/73 97 01/11/18 07:40 01/11/18 13:06 01/11/18 13:06 01/11/18 07:40 01/11/18 13:06 Intake & Output 01/10/18 01/11/18 01/12/18 06:59 06:59 06:59 Intake Total 2004 2702 459 Output Total 800 Balance 1204 2702 459 Weight 108.5 kg 108.7 kg General appearance: PRESENT: no acute distress, obese Head exam: PRESENT: normocephalic Mouth exam: PRESENT: moist Respiratory exam: PRESENT: unlabored. ABSENT: tachypnea, wheezes Cardiovascular exam: PRESENT: +S1, +S2. ABSENT: tachycardia GI/Abdominal exam: PRESENT: normal bowel sounds, soft, tenderness - Periumbilical Musculoskeletal exam: PRESENT: ambulatory Neurological exam: PRESENT: alert, awake, oriented to person, oriented to place , oriented to time, CN II-XII grossly intact Psychiatric exam: PRESENT: appropriate affect Skin exam: PRESENT: dry, warm Results Laboratory Results: 01/11/18 04:20 01/11/18 04:20 01/11/18 01/11/18 04:20 04:20 WBC 4.4 RBC 4.52 Hgb 13.6 Hct 40.0 MCV 88 MCH 30.1 MCHC 34.1 RDW 13.1 Plt Count 173 Sodium 140.0 Potassium 3.7 Chloride 106 Carbon Dioxide 21 L Anion Gap 13 BUN 10 Creatinine 0.73 Est GFR ( Amer) > 60 Est GFR (Non-Af Amer) > 60 Glucose 147 H Calcium 8.9 Phosphorus 3.8 Magnesium 1.8 Albumin 3.3 L Impressions: KUB X-Ray 01/10/18 00:00 IMPRESSION: NO RADIOGRAPHIC EVIDENCE FOR ACUTE ABDOMINAL DISEASE. Assessment & Plan - Diagnosis (1) DKA (diabetic ketoacidoses) Qualifiers: Diabetes mellitus type: type 2 Diabetes mellitus complication detail: without coma Qualified Code(s): E11.10 - Type 2 diabetes mellitus with ketoacidosis without coma Is this a current diagnosis for this admission?: Yes Plan: Per patient was diagnosed with DM 1 year ago. Was taking insulin for some time however stopped taking. Most recent HgA1c was >14%. Presented with anion gap, now closed. Blood sugars remain slightly elevated. Increase 70/30 to 25U BID. LDISS also ordered. Will need close outpatient follow up. (2) Abdominal pain Qualifiers: Abdominal location: lower abdomen, unspecified Qualified Code(s): R10.30 - Lower abdominal pain, unspecified Is this a current diagnosis for this admission?: Yes Plan: Persistent pain and reasons for continued hospitalization. Differential includes constipation vs. gastroparesis. KUB on 01/10 negative for intra- abdominal pathology. Will increase bowel regiment - Miralax BID, started Senna, continue Docusate. Offered suppository or enema however patient refused. CTM (3) Hypertension Qualifiers: Hypertension type: essential hypertension Qualified Code(s): I10 - Essential (primary) hypertension Is this a current diagnosis for this admission?: Yes Plan: Well controlled, not requiring antihypertensives - Should be started on low dose NANDO-i or ARB. This can be done as an outpatient. (4) Morbid obesity Is this a current diagnosis for this admission?: Yes Plan: Encouraged healthy diet and exercise. - Time Time Spent with patient: Less than 15 minutes Anticipated discharge: Home Within: within 24 hours
[2018-01-11] MEDS: HUM INSULIN NPH/REG INSULIN HM 100 UNIT/1 ML 3 ML SUBCUT SCH (18:08)
[2018-01-11] MEDS: FLUOXETINE HCL 20 MG CAPSULE PO SCH (22:07)
[2018-01-12] MEDS: INSULIN LISPRO 100 UNIT/ML 3 ML VIAL SUBCUT PRN ×2 (08:49→12:06)
[2018-01-12] MEDS ORDERED: LISINOPRIL 5 MG TABLET PO SCH (10:00)
[2018-01-12] MEDS: HUM INSULIN NPH/REG INSULIN HM 100 UNIT/1 ML 3 ML SUBCUT SCH (10:50)
[2018-01-12] MEDS: POLYETHYLENE GLYCOL 3350 POWDER 17 GM/1 PACKET PO SCH (10:50)
[2018-01-12] MEDS: SENNOSIDES/DOCUSATE 8.6-50 MG 1 EACH TABLET PO SCH (10:53)
[2018-01-12 13:06] VITALS: BP 148/88
--- NOTE | 2018-01-12 13:08 | PDOC DISCHARGE SUMMARY ---
General - Admit/Disc Date/PCP Admission Date/Primary Care Provider: 01/09/18 16:32 DAVID SON PA-C Discharge Date: 01/12/18 - Discharge Diagnosis (1) DKA (diabetic ketoacidoses) Is this a current diagnosis for this admission?: Yes Summary: Diagnosed with DM 1 year ago. Was taking insulin for some time however stopped taking. Most recent HgA1c was >14%. Presented with anion gap, now closed. - At discharge blood sugars better controlled - Script given for 70/30 @ 25U BID - Will need close outpatient follow up - Counseled importance of medication compliance and closely monitoring blood sugars at home (2) Abdominal pain Is this a current diagnosis for this admission?: Yes Summary: At discharge, continues to have mild abdominal pain. Did have bowel moveement on 01/11 overnight, however felt this was incomplete. - Alternative explanations for pain include gastroparesis and GI discomfort after recently starting SSRI - KUB on 01/10 negative for intra-abdominal pathology - At discharge, continue Miralax and Senna - Discussed that if DM-related gastroparesis, should have small meals rather than normal 2-3 larger meals - Can be followed up as outpatient (3) Hypertension Is this a current diagnosis for this admission?: Yes Summary: Elevated last 1-2 days. Started on Lisinopril 5mg daily. Script given for outpatient - Should have lytes checked by PCP in 1 week. (4) Morbid obesity Is this a current diagnosis for this admission?: Yes Summary: Encouraged healthy diet and exercise. Weight loss would be helpful as well. - Additional Information Discharge Diet: Diabetic Discharge Activity: Activity As Tolerated Prescriptions: Fluoxetine HCl [Prozac 20 mg Capsule] 20 mg PO QHS #30 capsule Hum Insulin NPH/Reg Insulin Hm [Insulin 70-30 (NPH/Reg) 100 unit/mL] 25 unit SUBCUT BID #5 unit Lisinopril [Prinivil 5 mg Tablet] 5 mg PO DAILY #30 tablet Sennosides/Docusate 8.6-50 mg [Senna Plus Tablet] 1 each PO DAILY #30 tablet Home Medications: Ibuprofen [Motrin 800 mg Tablet] 800 mg PO TIDP PRN 01/09/18 Fluoxetine HCl [Prozac 20 mg Capsule] 20 mg PO QHS #30 capsule 01/12/18 Hum Insulin NPH/Reg Insulin Hm [Insulin 70-30 (NPH/Reg) 100 unit/mL] 25 unit SUBCUT BID #5 unit 01/12/18 Lisinopril [Prinivil 5 mg Tablet] 5 mg PO DAILY #30 tablet 01/12/18 Sennosides/Docusate 8.6-50 mg [Senna Plus Tablet] 1 each PO DAILY #30 tablet History of Present Illness History of Present Illness: MICHELLE OLEARY JR is a 22 year old male with PMH significant for diabetes mellitus type 2 and hypertension. States that he used to take metformin and lisinopril approximately 6 months ago. He stopped taking it, and he is unable to explain why. Patient lives with his significant other with multiple kids in the house. One kid recently had a gastroenteritis and was seen in the emergency department. Patient describes feeling nauseated and having multiple bouts of vomiting began at 4 AM this morning. He describes relative constipation prior to this episode for the prior couple of days. Patient presented with a blood sugar greater than 400, and a blood CO2 of 13. He was lethargic and groggy. He was started on an insulin drip in the emergency department and given 2 L boluses of normal saline in the ED. Admitted to hospitalist service for further management. Physical Exam Vital Signs: Temp Pulse Resp BP Pulse Ox 97.7 F 77 16 134/85 H 100 01/12/18 11:09 01/12/18 11:09 01/12/18 11:09 01/12/18 11:09 01/12/18 11:09 Intake & Output 01/11/18 01/12/18 01/13/18 06:59 06:59 06:59 Intake Total 2702 1434 Balance 2702 1434 Weight 108.7 kg 108.7 kg General appearance: PRESENT: no acute distress, cooperative, obese, other - Resting in bed Head exam: PRESENT: normocephalic Mouth exam: PRESENT: moist Respiratory exam: PRESENT: symmetrical, unlabored Cardiovascular exam: PRESENT: +S1, +S2. ABSENT: tachycardia GI/Abdominal exam: PRESENT: soft, tenderness - Mild non,specific pain Extremities exam: PRESENT: +1 edema Neurological exam: PRESENT: alert, awake, CN II-XII grossly intact Psychiatric exam: PRESENT: appropriate affect Skin exam: PRESENT: dry, intact Results Laboratory Results: 01/11/18 04:20 01/11/18 04:20 Impressions: KUB X-Ray 01/10/18 00:00 IMPRESSION: NO RADIOGRAPHIC EVIDENCE FOR ACUTE ABDOMINAL DISEASE. Qualifiers - * PATIENT BEING DISCHARGED WITH ANY OF THE FOLLOWING DIAGNOSIS: No Plan Time Spent: Less than 30 Minutes
== END 2018-01-12 15:01 | disposition home or self-care (01) | DRG 639 ==
LOC: ER 09:25 → EH 16:32 → 3N 23:08
PROVIDERS: ADMIT Internal Medicine; ATTEND Internal Medicine
DX: E11.10 Type 2 diabetes mellitus with ketoacidosis without coma (principal); I10 Essential (primary) hypertension; F32.9 Major depressive disorder, single episode, unspecified; E11.43 Type 2 diabetes mellitus with diabetic autonomic (poly)neuropathy; K31.84 Gastroparesis; E66.01 Morbid (severe) obesity due to excess calories; F17.200 Nicotine dependence, unspecified, uncomplicated; Z68.33 Body mass index [BMI] 33.0-33.9, adult; Z82.61 Family history of arthritis; Z83.3 Family history of diabetes mellitus; Z82.49 Family history of ischemic heart disease and other diseases of the circulatory system
CPT/HCPCS: 36415; 74018; 80048; 80053; 80069; 80307; 81001; 82550; 82803; 82962; 83036; 83605; 83690; 83735; 85025; 85027; 93005; 93010; 96360; 96361; 99285; J1815; J3480; J3490; J7030; J7120

== ENCOUNTER 2019-07-04 07:19 | Inpatient (IN) | payer SELFPAY ==
[2019-07-04] MEDS ORDERED: NORMAL SALINE 1000 ML 1,000 ML IV ONE ×2 (07:44→09:09)
[2019-07-04 08:21] LABS: HEMATOCRIT 47.1 % (37.9-51.0); MEAN CORPUSCULAR VOLUME 96 fl (80-97); PLATELET COUNT 413 10^3/uL (150-450); RED BLOOD COUNT 4.88 10^6/uL (4.35-5.55); RED CELL DISTRIBUTION WIDTH 13.3 % (11.5-14.0); WHITE BLOOD COUNT 26.2 10^3/uL (4.0-10.5)
[2019-07-04 08:31] LABS: APPEARANCE,URINE CLEAR; BILIRUBIN,URINE NEGATIVE (NEGATIVE); COLOR,URINE YELLOW; GLUCOSE, URINE >=500 mg/dL (NEGATIVE); KETONES,URINE 80 mg/dL (NEGATIVE); LEUKOCYTE ESTERASE,URINE NEGATIVE (NEGATIVE); NITRITE,URINE NEGATIVE (NEGATIVE); PROTEIN,URINE 100 mg/dL (NEGATIVE); URINE SPECIFIC GRAVITY 1.024; UROBILINOGEN,URINE NEGATIVE mg/dL (<2.0)
[2019-07-04 08:36] LABS: VENOUS BLOOD BASE EXCESS -21.2 mmol/L; VENOUS BLOOD PCO2 35.5 mmHg (35-63)
[2019-07-04 08:37] LABS: VENOUS BLOOD PH 7.02 (7.30-7.42)
[2019-07-04] MEDS ORDERED: INSULIN REG, HUMAN 100 UNIT/ML 3 ML VIAL (PYX) IV ONE (08:45)
--- NOTE | 2019-07-04 08:45 | ER Document Report ---
Entered by ISAIAH BIRCH SCRIBE 07/04/19 0814 Acting as scribe for:AARON VAIL MD ED General - General Chief Complaint: Abdominal Pain Stated Complaint: CONSTIPATION/ABDOMINAL PAIN Time Seen by Provider: 07/04/19 07:43 Mode of Arrival: Ambulatory Information source: Patient Notes: This 23-year-old insulin-dependent diabetic patient presents the emergency depa rtment today with complaints of nausea and vomiting for x2 days with associated weight loss. Patient has been off of his insulin for an extended amount of time, stating he does not have insurance and cannot afford it. Patient has a strong ketone odor on his breath. TRAVEL OUTSIDE OF THE [place] IN LAST 30 DAYS: No - Related Data Allergies/Adverse Reactions: No Known Allergies Allergy (Verified 07/04/19 08:26) Past Medical History - General Information source: Patient - Social History Smoking Status: Current Every Day Smoker Cigarette use (# per day): Yes - < 1 ppd Frequency of alcohol use: Rare Drug Abuse: None Occupation: [employer] Lives with: Family Family History: Arthritis, CVA, DM, Hypertension Patient has suicidal ideation: No Patient has homicidal ideation: No - Past Medical History Cardiac Medical History: Reports: Hx Hypertension Endocrine Medical History: Reports: Hx Diabetes Mellitus Type 1 Psychiatric Medical History: Reports: Hx Depression Past Surgical History: Reports: Hx Tonsillectomy - Immunizations Hx Pneumococcal Vaccination: 08/01/11 Review of Systems - Review of Systems Constitutional: See HPI, Weight loss EENT: No symptoms reported Cardiovascular: No symptoms reported Respiratory: No symptoms reported Gastrointestinal: See HPI, Nausea, Vomiting Genitourinary: No symptoms reported Male Genitourinary: No symptoms reported Musculoskeletal: No symptoms reported Skin: No symptoms reported Hematologic/Lymphatic: No symptoms reported Neurological/Psychological: No symptoms reported -: Yes All other systems reviewed and negative Physical Exam - Vital signs Vitals: Temp Pulse Resp BP Pulse Ox 97.4 F 146 H 22 H 159/82 H 98 07/04/19 07:23 07/04/19 07:23 07/04/19 07:23 07/04/19 07:23 07/04/19 07:23 - Notes Notes: Physical Exam: General: Alert, strong ketone odor, appears nauseated. HEENT: Normocephalic. Atraumatic. PERRL. Extraocular movements intact. Oropharynx clear. Very dry oral mucosa, tongue is coated, poor dentition throughout. Neck: Supple. Non-tender. Respiratory: Tachypnea, Kussmaul breathing. Cardiovascular: Tachycardic, regular rhythm. Abdominal: Appears nauseated. Non-tender. No distension. Normal Bowel Sounds. Back: No gross abnormalities. Extremities: Moves all four extremities. Upper extremities: Normal inspection. Normal ROM. Lower extremities: Normal inspection. No edema. Normal ROM. Neurological: Normal cognition. AAOx4. Normal speech. Psychological: Normal affect. Normal Mood. Skin: Warm. Dry. Normal color. Course - Vital Signs Vital signs: Temp Pulse Resp BP Pulse Ox 97.6 F 129 H 24 H 131/92 H 100 07/04/19 11:07 07/04/19 11:07 07/04/19 11:07 07/04/19 11:07 07/04/19 11:07 - Laboratory Result Diagrams: 07/04/19 07:52 07/04/19 07:52 Laboratory results interpreted by me: 07/04/19 07/04/19 07/04/19 07:30 07:52 07:52 WBC 26.2 H Seg Neuts % (Manual) 80 H Lymphocytes % (Manual) 10 L Abs Neuts (Manual) 22.0 H Abs Monocytes (Manual) 1.6 H VBG pH VBG HCO3 Sodium 136.5 L Chloride 93 L Carbon Dioxide < 5 L* Creatinine 1.35 H Glucose 421 H* POC Glucose 456 H* Lactic Acid (Sepsis) Phosphorus Alkaline Phosphatase 159 H Creatine Kinase 204 H Total Protein 8.7 H Urine Protein Urine Glucose (UA) Urine Ketones Urine Blood 07/04/19 07/04/19 07/04/19 07:52 07:52 07:52 WBC Seg Neuts % (Manual) Lymphocytes % (Manual) Abs Neuts (Manual) Abs Monocytes (Manual) VBG pH 7.02 L* VBG HCO3 9.0 L Sodium Chloride Carbon Dioxide Creatinine Glucose POC Glucose Lactic Acid (Sepsis) 2.3 H Phosphorus 10.3 H Alkaline Phosphatase Creatine Kinase Total Protein Urine Protein Urine Glucose (UA) Urine Ketones Urine Blood 07/04/19 07/04/19 07:57 08:12 WBC Seg Neuts % (Manual) Lymphocytes % (Manual) Abs Neuts (Manual) Abs Monocytes (Manual) VBG pH VBG HCO3 Sodium Chloride Carbon Dioxide Creatinine Glucose POC Glucose 416 H* Lactic Acid (Sepsis) Phosphorus Alkaline Phosphatase Creatine Kinase Total Protein Urine Protein 100 H Urine Glucose (UA) >=500 H Urine Ketones 80 H Urine Blood MODERATE H - EKG Interpretation by Me EKG shows normal: Sinus rhythm, Amory, Intervals, QRS Complexes. abnormal: ST-T Waves - Diffuse nonspecific T abnormalities Rate: Tachycardia - 133 P Waves: LAE When compared to previous EKG there are: No significant change - Consults Dr. Clark Time consulted: 09:10 Consulted provider: will come to ER Critical Care Note - Critical Care Note Total time excluding time spent on procedures (mins): 40 Discharge - Discharge Clinical Impression: Tachycardia, Dehydration DKA (diabetic ketoacidoses) Qualifiers: Diabetes mellitus type: type 1 Diabetes mellitus complication detail: without coma Qualified Code(s): E10.10 - Type 1 diabetes mellitus with ketoacidosis without coma Hypertension Qualifiers: Hypertension type: essential hypertension Qualified Code(s): I10 - Essential (primary) hypertension Condition: Fair Disposition: ADMITTED INPATIENT Admitting Provider: Eduardo (Hospitalist) Unit Admitted: [facility] Scribe Attestation: 07/04/19 08:47 I personally performed the services described in the documentation, reviewed and edited the documentation which was dictated to the scribe in my presence, and it accurately records my words and actions. I personally performed the services described in the documentation, reviewed and edited the documentation which was dictated to the scribe in my presence, and it accurately records my words and actions.
[2019-07-04 08:47] LABS: ALBUMIN 3.6 g/dL (3.5-5.0); ALKALINE PHOSPHATASE 159 U/L (38-126); ASPARTATE AMINO TRANSFERASE 20 U/L (17-59); BILIRUBIN,DIRECT 0.3 mg/dL (0.0-0.4); BILIRUBIN,TOTAL 0.6 mg/dL (0.2-1.3); BLOOD UREA NITROGEN 14 mg/dL (7-20); CALCIUM 8.9 mg/dL (8.4-10.2); CHLORIDE 93 mmol/L (98-107); CREATINE KINASE 204 U/L (55-170); POTASSIUM 4.7 mmol/L (3.6-5.0); TOTAL PROTEIN 8.7 g/dL (6.3-8.2)
[2019-07-04 08:49] LABS: HEMOGLOBIN 15.8 g/dL (13.5-17.0)
[2019-07-04 08:50] LABS: MEAN CORPUSCULAR HEMOGLOBIN 33.2 pg (27.0-33.4); MEAN CORPUSCULAR HGB CONC 33.5 g/dL (32.0-36.0)
[2019-07-04 08:56] LABS: CARBON DIOXIDE < 5 mmol/L (22-30); GLUCOSE 421 mg/dL (75-110)
[2019-07-04 09:00] LABS: ABSOLUTE LYMPHOCYTES# (MANUAL) 2.6 10^3/uL (0.5-4.7); ABSOLUTE MONOCYTES # (MANUAL) 1.6 10^3/uL (0.1-1.4); BAND NEUTROPHILS % (MANUAL) 4 % (3-5); BASOPHILS % (MANUAL) 0 % (0-2); EOSINOPHILS % (MANUAL) 0 % (0-6); LYMPHOCYTES % (MANUAL) 10 % (13-45); MONOCYTES % (MANUAL) 6 % (3-13); SEGMENTED NEUTROPHILS % (MAN) 80 % (42-78); TOTAL CELLS COUNTED 100
[2019-07-04 09:05] LABS: PLATELET COMMENT ADEQUATE; RBC MORPHOLOGY COMMENT NORMO-CYTIC/CHROMIC
[2019-07-04 09:40] LABS: PHOSPHORUS 10.3 mg/dL (2.5-4.5)
[2019-07-04] MEDS ORDERED: GLUCAGON,HUMAN RECOMB 1 MG INJ IM PRN (09:41)
[2019-07-04] MEDS ORDERED: GLUCAGON,HUMAN RECOMB 1 MG INJ SUBCUT PRN (09:41)
[2019-07-04] MEDS ORDERED: POTASSI CL 20 MEQ/1/2NS 1L 20 MEQ/1,000 ML RTUINJ IV PRN (09:41)
[2019-07-04] MEDS ORDERED: DEXTROSE 50%-WATER 25 GM/50 ML DISP.SYRIN IV PRN ×4 (09:41)
[2019-07-04] MEDS ORDERED: DEXTROSE 40% GEL 15 GM TUBE PO PRN ×4 (09:41)
[2019-07-04] MEDS ORDERED: HYDRALAZINE HCL INJ/PF 20 MG/1 ML SDV IV PRN (09:52)
[2019-07-04] MEDS: ONDANSETRON HCL INJ/PF 4 MG/2 ML SDV IV PRN ×3 (11:07→23:56)
[2019-07-04] MEDS: NORMAL SALINE 100 ML with INSULIN REGULAR, HUMAN 100 UNIT IV PRN ×2 (11:16)
[2019-07-04] MEDS ORDERED: INFLUENZA QUAD (6MOS+) 2019-20 VAC 0.5 ML SYR IM ONE (11:26)
--- NOTE | 2019-07-04 11:45 | EKG REPORT ---
SEVERITY:- ABNORMAL ECG - SINUS TACHYCARDIA PROBABLE LEFT ATRIAL ABNORMALITY NONSPECIFIC T ABNORMALITIES, DIFFUSE LEADS : Confirmed by: Tiffanie Nunes MD 04-Jul-2019 11:44:22
[2019-07-04] MEDS ORDERED: KETOROLAC TROMETHAMINE INJ/PF 30 MG/1 ML SDV ONE (12:11)
[2019-07-04] MEDS ORDERED: KETOROLAC TROMETHAMINE INJ/PF 30 MG/1 ML SDV IV ONE (12:30)
[2019-07-04] MEDS: HEPARIN SOD (PORCINE) 5,000 UNIT/ML 1 ML VIAL SUBCUT SCH ×2 (13:18→21:26)
[2019-07-04 15:08] LABS: BLOOD UREA NITROGEN 11 mg/dL (7-20); CALCIUM 7.5 mg/dL (8.4-10.2); CHLORIDE 107 mmol/L (98-107); GLUCOSE 281 mg/dL (75-110)
[2019-07-04 15:17] LABS: CARBON DIOXIDE < 5 mmol/L (22-30)
--- NOTE | 2019-07-04 18:10 | PDOC H&P ---
History of Present Illness Admission Date/PCP: 07/04/19 09:27 History of Present Illness: MICHELLE OLEARY JR is a 23 year old male with a history of insulin-dependent diabetes who apparently has not taken his insulin in a couple of weeks. He says he does not have insurance and that is why he has not taken his insulin. He says he did not know that he could buy insulin [id number]. He says he does not have a doctor. He has been feeling progressively poorly the past week. Initially came in complaining of constipation. His mother says he has lost some weight. He had a constellation of metabolic derangements consistent with diabetic ketoacidosis. He was hypertensive. Being admitted for fluid and electrolyte management. Past Medical History Cardiac Medical History: Reports: Hypertension Endocrine Medical History: Reports: Diabetes Mellitus Type 1, Diabetes Mellitus Type 2 Psychiatric Medical History: Reports: Depression Past Surgical History Past Surgical History: Reports: Tonsillectomy Social History Lives with: Family Smoking Status: Current Every Day Smoker Frequency of Alcohol Use: Heavy Hx Recreational Drug Use: No Hx Prescription Drug Abuse: No Family History Family History: Arthritis, CVA, DM, Hypertension Parental Family History Reviewed: Yes Children Family History Reviewed: NA Sibling(s) Family History Reviewed.: Yes Medication/Allergy Home Medications: Metformin HCl [Glucophage] 1,000 mg PO QAM 07/04/19 Allergies/Adverse Reactions: No Known Allergies Allergy (Verified 07/04/19 08:26) Review of Systems All systems: reviewed and no additional remarkable complaints except as stated - All systems were reviewed and were negative except as noted in the HPI Physical Exam Vital Signs: Temp Pulse Resp BP Pulse Ox 99.1 F 132 H 14 144/89 H 100 07/04/19 16:08 07/04/19 16:08 07/04/19 16:08 07/04/19 16:08 07/04/19 16:08 Intake & Output 07/03/19 07/04/19 07/05/19 06:59 06:59 06:59 Intake Total 2010 Balance 2010 Weight 81.1 kg General appearance: PRESENT: cooperative, disheveled, other - Moderate distress Head exam: PRESENT: atraumatic, normocephalic Eye exam: PRESENT: EOMI, PERRLA. ABSENT: conjunctival injection, nystagmus, scleral icterus Ear exam: PRESENT: normal external ear exam Mouth exam: PRESENT: dry mucosa, neck supple Throat exam: ABSENT: post pharyngeal erythema Neck exam: PRESENT: full ROM. ABSENT: carotid bruit, JVD, lymphadenopathy, meni ngismus, tenderness, thyromegaly Respiratory exam: PRESENT: clear to auscultation pj, symmetrical, unlabored, other - His breath was awful. ABSENT: accessory muscle use, chest wall tenderness, crackles, prolonged expiratory phas, rhonchi, tachypnea, wheezes Cardiovascular exam: PRESENT: +S1, +S2, tachycardia Pulses: PRESENT: normal carotid pulses Vascular exam: PRESENT: normal capillary refill GI/Abdominal exam: PRESENT: normal bowel sounds, soft. ABSENT: distended, g uarding, rebound, tenderness Extremities exam: ABSENT: clubbing, pedal edema Musculoskeletal exam: PRESENT: normal inspection. ABSENT: deformity Neurological exam: PRESENT: awake, oriented to person, oriented to place, orien nahun to situation, CN II-XII grossly intact. ABSENT: motor sensory deficit Psychiatric exam: PRESENT: flat affect Skin exam: PRESENT: dry, warm Results Laboratory Results: 07/04/19 07:52 07/04/19 14:14 07/04/19 07/04/19 07/04/19 07:52 07:52 07:52 WBC 26.2 H RBC 4.88 Hgb 15.8 Hct 47.1 MCV 96 MCH 33.2 MCHC 33.5 RDW 13.3 Plt Count 413 Seg Neutrophils % Not Reportable VBG pH 7.02 L* VBG pCO2 35.5 VBG HCO3 9.0 L VBG Base Excess -21.2 Sodium 136.5 L Potassium 4.7 Chloride 93 L Carbon Dioxide < 5 L* Anion Gap Not Reportable BUN 14 Creatinine 1.35 H Est GFR ( Amer) > 60 Glucose 421 H* Calcium 8.9 Phosphorus Magnesium Total Bilirubin 0.6 AST 20 Alkaline Phosphatase 159 H Total Protein 8.7 H Albumin 3.6 Urine Color Urine Appearance Urine pH Ur Specific [place] Urine Protein Urine Glucose (UA) Urine Ketones Urine Blood Urine Nitrite Ur Leukocyte Esterase Urine WBC (Auto) Urine RBC (Auto) 07/04/19 07/04/19 07/04/19 07:52 08:12 14:14 WBC RBC Hgb Hct MCV MCH MCHC RDW Plt Count Seg Neutrophils % VBG pH VBG pCO2 VBG HCO3 VBG Base Excess Sodium 140.3 Potassium 5.0 Chloride 107 Carbon Dioxide < 5 L* Anion Gap Not Reportable BUN 11 Creatinine 0.93 Est GFR ( Amer) > 60 Glucose 281 H Calcium 7.5 L Phosphorus 10.3 H Magnesium 2.0 Total Bilirubin AST Alkaline Phosphatase Total Protein Albumin Urine Color YELLOW Urine Appearance CLEAR Urine pH 5.0 Ur Specific [place] 1.024 Urine Protein 100 H Urine Glucose (UA) >=500 H Urine Ketones 80 H Urine Blood MODERATE H Urine Nitrite NEGATIVE Ur Leukocyte Esterase NEGATIVE Urine WBC (Auto) 0 Urine RBC (Auto) 0 07/04/19 07/04/19 07:52 07:52 Creatine Kinase 204 H Troponin I < 0.012 Assessment and Plan - Diagnosis (1) DKA (diabetic ketoacidoses) Qualifiers: Diabetes mellitus type: type 1 Diabetes mellitus complication detail: without coma Qualified Code(s): E10.10 - Type 1 diabetes mellitus with ketoacidosis without coma Is this a current diagnosis for this admission?: Yes Plan: We put him on an insulin drip protocol with regular checks of electrolytes. Aggressive fluid resuscitation. Will replace electrolytes on an as-needed basis. Once we get him off the insulin drip we will transition him to a carbohydrate controlled diet and a basal bolus insulin regimen. We will see if we can get him plugged into the community clinic where he can get help obtaining his medications. He says that he works full-time at [employer]. (2) Hypertension Qualifiers: Hypertension type: essential hypertension Qualified Code(s): I10 - Essential (primary) hypertension Is this a current diagnosis for this admission?: Yes Plan: We will give him as needed medications for now, and if he winds up needing something on a longer-term basis at discharge we will get him started on something, likely an NANDO inhibitor. - Time Time Spent with patient: 35 or more minutes - Inpatient Certification Based on my medical assessment, after consideration of the patient's comorbidities, presenting symptoms, or acuity I expect that the services needed warrant INPATIENT care.: Yes I certify that my determination is in accordance with my understanding of Medicare's requirements for reasonable and necessary INPATIENT services [42 CFR 412.3e].: Yes Medical Necessity: Significant Comorbidiites Make Outpatient Treatment Too Risky, Need Close Monitoring Due to Risk of Patient Decompensation, Need For IV Fluids, Need For Continuous Telemetry Monitoring, Risk of Complication if Not Cared For in Hospital
[2019-07-04] MEDS: POTASSI CL 20 MEQ/D5-1/2NS 1L 1000 ML IV PRN ×2 (18:32→23:07)
[2019-07-04 19:10] LABS: BLOOD UREA NITROGEN 11 mg/dL (7-20); CALCIUM 7.9 mg/dL (8.4-10.2); CHLORIDE 109 mmol/L (98-107); GLUCOSE 173 mg/dL (75-110); POTASSIUM 5.2 mmol/L (3.6-5.0)
[2019-07-04 19:37] LABS: CARBON DIOXIDE < 5 mmol/L (22-30)
[2019-07-04] MEDS ORDERED: ACETAMINOPHEN 325 MG TABLET ONE (19:56)
[2019-07-04] MEDS: ACETAMINOPHEN 325 MG TABLET PO PRN (20:02)
[2019-07-04 22:53] LABS: ANION GAP 19 (5-19); BLOOD UREA NITROGEN 9 mg/dL (7-20); CALCIUM 8.2 mg/dL (8.4-10.2); CHLORIDE 111 mmol/L (98-107); GLUCOSE 180 mg/dL (75-110); POTASSIUM 4.6 mmol/L (3.6-5.0)
[2019-07-04 23:01] LABS: CARBON DIOXIDE 7 mmol/L (22-30)
[2019-07-05] MEDS ORDERED: INSULIN REG, HUMAN 100 UNIT/ML 3 ML VIAL (PYX) ONE (01:19)
[2019-07-05] MEDS: NORMAL SALINE 100 ML with INSULIN REGULAR, HUMAN 100 UNIT IV PRN ×4 (01:21→11:25)
[2019-07-05 02:53] LABS: BLOOD UREA NITROGEN 8 mg/dL (7-20); CHLORIDE 111 mmol/L (98-107); GLUCOSE 168 mg/dL (75-110); POTASSIUM 4.6 mmol/L (3.6-5.0)
[2019-07-05 02:58] LABS: ANION GAP 16 (5-19)
[2019-07-05 03:01] LABS: CARBON DIOXIDE 10 mmol/L (22-30)
[2019-07-05] MEDS: POTASSI CL 20 MEQ/D5-1/2NS 1L 1000 ML IV PRN ×3 (03:09→11:07)
[2019-07-05] MEDS: HEPARIN SOD (PORCINE) 5,000 UNIT/ML 1 ML VIAL SUBCUT SCH ×3 (05:58→21:52)
[2019-07-05 06:28] LABS: HEMATOCRIT 39.8 % (37.9-51.0); MEAN CORPUSCULAR HGB CONC 34.9 g/dL (32.0-36.0); PLATELET COUNT 226 10^3/uL (150-450); RED BLOOD COUNT 4.33 10^6/uL (4.35-5.55); RED CELL DISTRIBUTION WIDTH 13.2 % (11.5-14.0); WHITE BLOOD COUNT 14.9 10^3/uL (4.0-10.5)
[2019-07-05 06:31] LABS: HEMOGLOBIN 13.9 g/dL (13.5-17.0); MEAN CORPUSCULAR VOLUME 92 fl (80-97)
[2019-07-05 06:46] LABS: ANION GAP 13 (5-19); BLOOD UREA NITROGEN 7 mg/dL (7-20); CARBON DIOXIDE 12 mmol/L (22-30); CHLORIDE 110 mmol/L (98-107); GLUCOSE 158 mg/dL (75-110); POTASSIUM 4.5 mmol/L (3.6-5.0)
[2019-07-05 07:18] LABS: PHOSPHORUS 1.8 mg/dL (2.5-4.5)
[2019-07-05] MEDS: PHOSPHORUS #1 250 MG TABLET PO SCH ×3 (10:58→21:53)
[2019-07-05 13:29] LABS: ANION GAP 12 (5-19); BLOOD UREA NITROGEN 6 mg/dL (7-20); CALCIUM 8.2 mg/dL (8.4-10.2); CARBON DIOXIDE 16 mmol/L (22-30); CHLORIDE 108 mmol/L (98-107); GLUCOSE 111 mg/dL (75-110)
[2019-07-05 13:49] LABS: POTASSIUM 3.7 mmol/L (3.6-5.0)
--- NOTE | 2019-07-05 16:02 | RADIOLOGY REPORT (SQ) ---
EXAM DESCRIPTION: ACUTE ABDOMEN SERIES COMPLETED DATE/TIME: 07/05/2019 3:36 pm REASON FOR STUDY: abdominal pain COMPARISON: KUB 01/10/2018 NUMBER OF VIEWS: Three views. TECHNIQUE: Frontal chest, supine abdomen and upright abdomen radiographic images acquired. LIMITATIONS: None. FINDINGS: CHEST: No focal infiltrates. Cardiac silhouette size, terry, bony structures unremarkable. FREE AIR: None. No abnormal gas collections. BOWEL GAS PATTERN: Air-fluid levels in nondistended stomach and small bowel in the mid abdomen. Large amount of stool in the ascending colon, transverse colon, and descending colon. CALCIFICATIONS: No suspicious calcifications. HARDWARE: None in the abdomen. SOFT TISSUES: No gross mass or suggestion of organomegaly. BONES: No acute fracture. No worrisome bone lesions. OTHER: No other significant finding. IMPRESSION: No acute cardiopulmonary changes Large amount of stool in the colon. Air-fluid levels in nondistended stomach and small bowel. TECHNICAL DOCUMENTATION: JOB ID: [id number] [employer]- All Rights Reserved Reading location - IP/workstation name: [email or web address]
[2019-07-05] MEDS ORDERED: DEXTROSE 50%-WATER SYRINGE 25 GM/50 ML DOSE IV PRN (18:00)
[2019-07-05] MEDS ORDERED: DEXTROSE 50%-WATER SYRINGE 12.5 GM/25 ML DOSE IV PRN (18:00)
[2019-07-05] MEDS ORDERED: DEXTROSE 40% GEL 15 GM TUBE X 2 PO PRN (18:00)
[2019-07-05] MEDS ORDERED: DEXTROSE 40% GEL 15 GM TUBE PO PRN (18:00)
[2019-07-05] MEDS ORDERED: GLUCAGON,HUMAN RECOMB 1 MG INJ IM PRN (18:00)
--- NOTE | 2019-07-05 18:32 | PDOC PROGRESS REPORT ---
Subjective Progress Note for:: 07/05/19 Subjective:: No adverse events overnight. He was still complaining of some abdominal pain this morning but his abdominal series was unremarkable with the exception of large amount of stool in the colon. He was not complaining of any abdominal pain to the nurse as the day went on. Reason For Visit: DKA Physical Exam Vital Signs: Temp Pulse Resp BP Pulse Ox 98.2 F 114 H 16 139/87 H 100 07/05/19 14:54 07/05/19 14:54 07/05/19 14:54 07/05/19 14:54 07/05/19 14:54 Intake & Output 07/04/19 07/05/19 07/06/19 06:59 06:59 06:59 Intake Total 5983 3388 Output Total 425 900 Balance 5558 2488 Weight 78.7 kg General appearance: PRESENT: no acute distress, cooperative, disheveled Respiratory exam: PRESENT: clear to auscultation pj, symmetrical, unlabored. ABSENT: accessory muscle use, chest wall tenderness, crackles, prolonged expiratory phas, rhonchi, tachypnea, wheezes Cardiovascular exam: PRESENT: RRR, +S1, +S2 Pulses: PRESENT: normal carotid pulses Vascular exam: PRESENT: normal capillary refill GI/Abdominal exam: PRESENT: normal bowel sounds, soft. ABSENT: distended, guarding, rebound, tenderness Extremities exam: ABSENT: clubbing, pedal edema Musculoskeletal exam: PRESENT: normal inspection. ABSENT: deformity Neurological exam: PRESENT: awake, oriented to person, oriented to place, oriented to situation Psychiatric exam: PRESENT: flat affect Skin exam: PRESENT: dry, warm Results Laboratory Results: 07/05/19 06:08 07/05/19 13:00 07/04/19 07/04/19 07/05/19 18:27 22:06 02:25 WBC RBC Hgb Hct MCV MCH MCHC RDW Plt Count Sodium 140.0 136.9 L 136.7 L Potassium 5.2 H 4.6 4.6 Chloride 109 H 111 H 111 H Carbon Dioxide < 5 L* 7 L* 10 L* Anion Gap Not Reportable 19 16 BUN 11 9 8 Creatinine 1.03 0.87 0.69 Est GFR ( Amer) > 60 > 60 > 60 Est GFR (Non-Af Amer) Glucose 173 H 180 H 168 H Calcium 7.9 L 8.2 L 8.0 L Phosphorus Magnesium Triglycerides 07/05/19 07/05/19 07/05/19 06:08 06:08 10:00 WBC 14.9 H RBC 4.33 L Hgb 13.9 Hct 39.8 MCV 92 D MCH 32.0 MCHC 34.9 RDW 13.2 Plt Count 226 Sodium 135.4 L Cancelled Potassium 4.5 Cancelled Chloride 110 H Cancelled Carbon Dioxide 12 L Cancelled Anion Gap 13 Cancelled BUN 7 Cancelled Creatinine 0.65 Cancelled Est GFR ( Amer) > 60 Cancelled Est GFR (Non-Af Amer) Cancelled Glucose 158 H Cancelled Calcium 8.0 L Cancelled Phosphorus 1.8 L D Magnesium 1.9 Triglycerides 07/05/19 07/05/19 07/05/19 11:30 12:10 13:00 WBC RBC Hgb Hct MCV MCH MCHC RDW Plt Count Sodium Cancelled Cancelled Potassium Cancelled Cancelled Chloride Cancelled Cancelled Carbon Dioxide Cancelled Cancelled Anion Gap Cancelled Cancelled BUN Cancelled Cancelled Creatinine Cancelled Cancelled Est GFR ( Amer) Cancelled Cancelled Est GFR (Non-Af Amer) Cancelled Cancelled Glucose Cancelled Cancelled Calcium Cancelled Cancelled Phosphorus Magnesium Triglycerides 818 H 07/05/19 13:00 WBC RBC Hgb Hct MCV MCH MCHC RDW Plt Count Sodium 135.7 L Potassium 3.7 Chloride 108 H Carbon Dioxide 16 L Anion Gap 12 BUN 6 L Creatinine 0.64 Est GFR ( Amer) > 60 Est GFR (Non-Af Amer) Glucose 111 H Calcium 8.2 L Phosphorus Magnesium Triglycerides 07/04/19 07/04/19 07:52 07:52 Creatine Kinase 204 H Troponin I < 0.012 Impressions: Acute Abdomen Series 07/05/19 00:00 IMPRESSION: No acute cardiopulmonary changes Large amount of stool in the colon. Air-fluid levels in nondistended stomach and small bowel. Assessment and Plan - Diagnosis (1) DKA (diabetic ketoacidoses) Qualifiers: Diabetes mellitus type: type 1 Diabetes mellitus complication detail: [facility] coma Qualified Code(s): E10.10 - Type 1 diabetes mellitus with keto acidosis without coma Is this a current diagnosis for this admission?: Yes Plan: His bicarbonate had improved up to 16, his blood sugar was well controlled, and his anion gap was closed to 12. We will take him off the insulin drip and transition him to a sliding scale with a consistent carbohydrate diet. Hopefully this will give us an idea of how much insulin he will need to go home. (2) Hypertension Qualifiers: Hypertension type: essential hypertension Qualified Code(s): I10 - Essential (primary) hypertension Is this a current diagnosis for this admission?: Yes Plan: Blood pressures have trended down on their own without any intervention. We will see what his pressures look like tomorrow in case he needs to go home on something, possibly lisinopril. - Time Time Spent with patient: 15-24 minutes
[2019-07-05] MEDS: INSULIN LISPRO 100 UNIT/ML 3 ML VIAL SUBCUT SCH ×2 (18:44→21:53)
[2019-07-05] MEDS: ACETAMINOPHEN 325 MG TABLET PO PRN (19:13)
[2019-07-05] MEDS ORDERED: INSULIN LISPRO 100 UNIT/ML 3 ML VIAL SUBCUT SCH (22:00)
[2019-07-06 05:22] LABS: HEMATOCRIT 36.7 % (37.9-51.0); HEMOGLOBIN 13.2 g/dL (13.5-17.0); MEAN CORPUSCULAR HEMOGLOBIN 33.7 pg (27.0-33.4); MEAN CORPUSCULAR HGB CONC 35.9 g/dL (32.0-36.0); MEAN CORPUSCULAR VOLUME 94 fl (80-97); PLATELET COUNT 216 10^3/uL (150-450); RED BLOOD COUNT 3.91 10^6/uL (4.35-5.55); RED CELL DISTRIBUTION WIDTH 13.9 % (11.5-14.0); WHITE BLOOD COUNT 9.8 10^3/uL (4.0-10.5)
[2019-07-06] MEDS: HEPARIN SOD (PORCINE) 5,000 UNIT/ML 1 ML VIAL SUBCUT SCH ×2 (06:02→13:35)
[2019-07-06 06:12] LABS: PHOSPHORUS 3.9 mg/dL (2.5-4.5)
[2019-07-06] MEDS: PHOSPHORUS #1 250 MG TABLET PO SCH (08:14)
[2019-07-06] MEDS: INSULIN LISPRO 100 UNIT/ML 3 ML VIAL SUBCUT SCH ×2 (08:15→12:07)
[2019-07-06] MEDS: ACETAMINOPHEN 325 MG TABLET PO PRN (08:19)
[2019-07-06 13:08] VITALS: BP 126/67
--- NOTE | 2019-07-06 17:47 | PDOC DISCHARGE SUMMARY ---
Impression - Admit/DC Date/PCP Admission Date/Primary Care Provider: 07/04/19 09:27 Discharge Date: 07/06/19 - Discharge Diagnosis (1) DKA (diabetic ketoacidoses) Is this a current diagnosis for this admission?: Yes (2) Hypertension Is this a current diagnosis for this admission?: Yes - Additional Information Resuscitation Status: Full Code Discharge Diet: Diabetic Discharge Activity: Activity As Tolerated Referrals: [facility] [NO LOCAL MD] - 07/10/19 10:30 am (1-2 weeks) Prescriptions: Syringe-Needle,Insulin,0.5 ml [Insulin Syringe] 1 each MC BID #60 disp.syrin Hum Insulin NPH/Reg Insulin Hm [Novolin 70-30 100 Unit/Ml Vial] 10 unit SQ BIDACBS #1 bottle Home Medications: Metformin HCl [Glucophage] 1,000 mg PO QAM 07/04/19 Hum Insulin NPH/Reg Insulin Hm [Novolin 70-30 100 Unit/Ml Vial] 10 unit SQ BIDACBS #1 bottle 07/06/19 Syringe-Needle,Insulin,0.5 ml [Insulin Syringe] 1 each MC BID #60 disp.syrin 07/06/19 History of Present Illiness History of Present Illness: MICHELLE OLEARY JR is a 23 year old male with a history of insulin-dependent diabetes who apparently has not taken his insulin in a couple of weeks. He says he does not have insurance and that is why he has not taken his insulin. He says he did not know that he could buy insulin [id number]. He says he does not have a doctor. He has been feeling progressively poorly the past week. Initially came in complaining of constipation. His mother says he has lost some weight. He had a constellation of metabolic derangements consistent with diabetic ketoacidosis. He was hypertensive. Being admitted for fluid and electrolyte management. Hospital Course Hospital Course: He responded well to IV fluids and insulin. We were able to transition him off of the drip when he got out of DKA and put him on a controlled carbohydrate diet and a sliding scale. He was not requiring very much insulin to keep his blood sugars under control. We have set him up on an easy regimen for him to follow with Novolin 70/30 until he can get into see his primary care provider and have his regimen more finally tuned. His labs and examination were reassuring he was discharged in good condition. Physical Exam Vital Signs: Temp Pulse Resp BP Pulse Ox 97.7 F 108 H 16 126/67 H 100 07/06/19 12:35 07/06/19 12:35 07/06/19 12:35 07/06/19 11:19 07/06/19 12:35 Intake & Output 07/05/19 07/06/19 07/07/19 06:59 06:59 06:59 Intake Total 5983 4889 Output Total 425 900 Balance 5558 3989 Weight 78.7 kg 82.4 kg General appearance: PRESENT: no acute distress, cooperative, disheveled Respiratory exam: PRESENT: clear to auscultation pj, symmetrical, unlabored. ABSENT: accessory muscle use, chest wall tenderness, crackles, prolonged expiratory phas, rhonchi, tachypnea, wheezes Cardiovascular exam: PRESENT: RRR, +S1, +S2 Pulses: PRESENT: normal carotid pulses Vascular exam: PRESENT: normal capillary refill GI/Abdominal exam: PRESENT: normal bowel sounds, soft. ABSENT: distended, guarding, rebound, tenderness Extremities exam: ABSENT: clubbing, pedal edema Musculoskeletal exam: PRESENT: normal inspection. ABSENT: deformity Neurological exam: PRESENT: awake, oriented to person, oriented to place, oriented to situation Psychiatric exam: PRESENT: flat affect Skin exam: PRESENT: dry, warm Results Laboratory Results: WBC 9.8 10^3/uL (4.0-10.5) 07/06/19 04:48 RBC 3.91 10^6/uL (4.35-5.55) L 07/06/19 04:48 Hgb 13.2 g/dL (13.5-17.0) L 07/06/19 04:48 Hct 36.7 % (37.9-51.0) L 07/06/19 04:48 MCV 94 fl (80-97) 07/06/19 04:48 MCH 33.7 pg (27.0-33.4) H 07/06/19 04:48 MCHC 35.9 g/dL (32.0-36.0) 07/06/19 04:48 RDW 13.9 % (11.5-14.0) 07/06/19 04:48 Plt Count 216 10^3/uL (150-450) 07/06/19 04:48 Lymph % (Auto) Not Reportable 07/04/19 07:52 [place] % (Auto) Not Reportable 07/04/19 07:52 Eos % (Auto) Not Reportable 07/04/19 07:52 Baso % (Auto) Not Reportable 07/04/19 07:52 Absolute Neuts (auto) Not Reportable 07/04/19 07:52 Absolute Lymphs (auto) Not Reportable 07/04/19 07:52 Absolute Monos (auto) Not Reportable 07/04/19 07:52 Absolute Eos (auto) Not Reportable 07/04/19 07:52 Absolute Basos (auto) Not Reportable 07/04/19 07:52 Total Counted 100 07/04/19 07:52 Seg Neutrophils % Not Reportable 07/04/19 07:52 Seg Neuts % (Manual) 80 % (42-78) H 07/04/19 07:52 Band Neutrophils % 4 % (3-5) 07/04/19 07:52 Lymphocytes % (Manual) 10 % (13-45) L 07/04/19 07:52 Monocytes % (Manual) 6 % (3-13) 07/04/19 07:52 Eosinophils % (Manual) 0 % (0-6) 07/04/19 07:52 Basophils % (Manual) 0 % (0-2) 07/04/19 07:52 Abs Neuts (Manual) 22.0 10^3/uL (1.7-8.2) H 07/04/19 07:52 Abs Lymphs (Manual) 2.6 10^3/uL (0.5-4.7) 07/04/19 07:52 Abs Monocytes (Manual) 1.6 10^3/uL (0.1-1.4) H 07/04/19 07:52 Absolute Eos (Manual) 0.0 10^3/uL (0.0-0.6) 07/04/19 07:52 Abs Basophils (Manual) 0.0 10^3/uL (0.0-0.2) 07/04/19 07:52 Platelet Comment ADEQUATE 07/04/19 07:52 RBC Morph Comment NORMO-CYTIC/CHROMIC 07/04/19 07:52 VBG pH 7.02 (7.30-7.42) L* 07/04/19 07:52 VBG pCO2 35.5 mmHg (35-63) 07/04/19 07:52 VBG HCO3 9.0 mmol/L (20-32) L 07/04/19 07:52 VBG Base Excess -21.2 mmol/L 07/04/19 07:52 Sodium 135.7 mmol/L (137-145) L 07/05/19 13:00 Potassium 3.7 mmol/L (3.6-5.0) 07/05/19 13:00 Chloride 108 mmol/L (98-107) H 07/05/19 13:00 Carbon Dioxide 16 mmol/L (22-30) L 07/05/19 13:00 Anion Gap 12 (5-19) 07/05/19 13:00 BUN 6 mg/dL (7-20) L 07/05/19 13:00 Creatinine 0.64 mg/dL (0.52-1.25) 07/05/19 13:00 Est GFR ( Amer) > 60 (>60) 07/05/19 13:00 Est GFR (Non-Af Amer) Cancelled 07/05/19 12:10 Est GFR (MDRD) Non-Af > 60 (>60) 07/05/19 13:00 Glucose 111 mg/dL (75-110) H 07/05/19 13:00 POC Glucose 268 mg/dL (70-110) H 07/06/19 11:17 Lactic Acid (Sepsis) 2.3 mmol/L (0.7-2.1) H 07/04/19 07:52 Calcium 8.2 mg/dL (8.4-10.2) L 07/05/19 13:00 Phosphorus 3.9 mg/dL (2.5-4.5) D 07/06/19 04:48 Magnesium 2.1 mg/dL (1.6-2.3) 07/06/19 04:48 Total Bilirubin 0.6 mg/dL (0.2-1.3) 07/04/19 07:52 Direct Bilirubin 0.3 mg/dL (0.0-0.4) 07/04/19 07:52 Neonat Total Bilirubin Not Reportable 07/04/19 07:52 Neonat Direct Bilirubin Not Reportable 07/04/19 07:52 Neonat Indirect Bili Not Reportable 12/04/19 07:52 AST 20 U/L (17-59) 07/04/19 07:52 ALT 24 U/L (<50) 07/04/19 07:52 Alkaline Phosphatase 159 U/L (38-126) H 07/04/19 07:52 Creatine Kinase 204 U/L (55-170) H 07/04/19 07:52 Troponin I < 0.012 ng/mL 07/04/19 07:52 Total Protein 8.7 g/dL (6.3-8.2) H 07/04/19 07:52 Albumin 3.6 g/dL (3.5-5.0) 07/04/19 07:52 Triglycerides 818 mg/dL (<150) H 07/05/19 13:00 EGFR Cancelled 07/05/19 12:10 Urine Color YELLOW 07/04/19 08:12 Urine Appearance CLEAR 07/04/19 08:12 Urine pH 5.0 (5.0-9.0) 07/04/19 08:12 Ur Specific [place] 1.024 07/04/19 08:12 Urine Protein 100 mg/dL (NEGATIVE) H 07/04/19 08:12 Urine Glucose (UA) >=500 mg/dL (NEGATIVE) H 07/04/19 08:12 Urine Ketones 80 mg/dL (NEGATIVE) H 07/04/19 08:12 Urine Blood MODERATE (NEGATIVE) H 07/04/19 08:12 Urine Nitrite NEGATIVE (NEGATIVE) 07/04/19 08:12 Urine Bilirubin NEGATIVE (NEGATIVE) 07/04/19 08:12 Urine Urobilinogen NEGATIVE mg/dL (<2.0) 07/04/19 08:12 Ur Leukocyte Esterase NEGATIVE (NEGATIVE) 07/04/19 08:12 Urine WBC (Auto) 0 /HPF 07/04/19 08:12 Urine RBC (Auto) 0 /HPF 07/04/19 08:12 Squamous Epi Cells Auto <1 /HPF 07/04/19 08:12 Urine Mucus (Auto) RARE /LPF 07/04/19 08:12 Urine Ascorbic Acid NEGATIVE (NEGATIVE) 07/04/19 08:12 07/04/19 07:52 Troponin I < 0.012 Impressions: Acute Abdomen Series 07/05/19 00:00 IMPRESSION: No acute cardiopulmonary changes Large amount of stool in the colon. Air-fluid levels in nondistended stomach and small bowel. Plan Time Spent: Greater than 30 Minutes Stroke Is this a Stroke Patient?: No Acute Heart Failure - Is this a Heart Failure Patient?: No
== END 2019-07-06 14:30 | disposition home or self-care (01) | DRG 639 ==
LOC: ER 07:19 → EH 09:27 → 3S 11:02
PROVIDERS: ADMIT Family Medicine; ATTEND Family Medicine
PROC: 3E0234Z Introduction of Serum, Toxoid and Vaccine into Muscle, Percutaneous Approach (ICD-10-PCS; principal; 2019-07-06)
DX: E10.10 Type 1 diabetes mellitus with ketoacidosis without coma (principal); I10 Essential (primary) hypertension; K59.00 Constipation, unspecified; F17.210 Nicotine dependence, cigarettes, uncomplicated; Z23 Encounter for immunization
CPT/HCPCS: 36415; 74022; 80048; 80053; 81001; 82550; 82803; 82962; 83605; 83735; 84100; 84478; 84484; 85025; 85027; 90686; 93005; 93010; 96360; 99285; J1644; J1815; J1885; J2405; J3480; J7030; J7050